=== PATIENT | female | born 1990 | race Caucasian/White ===

== ENCOUNTER 2017-03-04 10:35 | Emergency (ER) | payer SELFPAY ==
[2017-03-04 11:28] VITALS: BP 116/65
--- NOTE | 2017-03-04 11:54 | UC ---
Throat Pain/Nasal Neal HPI - HPI Summary HPI Summary: Patient was exposed to strep, and she now has sore throat,and exudate, - History of Current Complaint Chief Complaint: UCRespiratory Stated Complaint: ST/WHITE SPOTS IN THROAT Time Seen by Provider: 03/04/17 11:48 Hx Obtained From: Patient Hx Last Menstrual Period: 02/24/17 ?: No Onset/Duration: Sudden Onset Severity: Moderate Associated Signs & Symptoms: Positive: Dysphagia - Allergies/Home Medications Allergies/Adverse Reactions: Allergies Allergy/AdvReac Type Severity Reaction Status Date / Time No Known Allergies Allergy Verified 03/04/17 11:19 PMH/Surg Hx/FS Hx/Imm Hx Previously Healthy: Yes - Surgical History Surgical History: None - Family History Known Family History: Negative: Cardiac Disease, Hypertension - Social History Alcohol Use: Occasionally Substance Use Type: None Smoking Status (MU): Never Smoked Tobacco Review of Systems Constitutional: Negative Skin: Negative Eyes: Negative ENT: Sore Throat Respiratory: Negative Cardiovascular: Negative Gastrointestinal: Negative Genitourinary: Negative Neurovascular: Negative Musculoskeletal: Negative Neurological: Headache Psychological: Negative All Other Systems Reviewed And Are Negative: Yes Physical Exam Triage Information Reviewed: Yes Appearance: Well-Appearing, Well-Nourished, Pain Distress Vital Signs: Initial Vital Signs Temp 98.6 F 03/04/17 11:21 Pulse 68 03/04/17 11:21 Resp 14 03/04/17 11:21 BP 116/65 03/04/17 11:21 Pulse Ox 100 03/04/17 11:21 Vital Signs Reviewed: Yes Eye Exam: Normal Eyes: Positive: Conjunctiva Clear ENT: Positive: Hearing grossly normal, Pharyngeal erythema, TMs normal, Tonsillar swelling, Tonsillar exudate Dental Exam: Normal Neck exam: Normal Neck: Positive: Supple, Nontender, No Lymphadenopathy Respiratory Exam: Normal Cardiovascular Exam: Normal Abdominal Exam: Normal Bowel Sounds: Positive: Present Musculoskeletal Exam: Normal Neurological Exam: Normal Psychological Exam: Normal Skin Exam: Normal Throat Pain/Nasal Course/Dx - Course Course Of Treatment: hx obtained, exam performed, meds reviewed, treated for strep based on exposure and clinical presentation - Differential Dx/Diagnosis Differential Diagnosis/HQI/PQRI: Otitis Media, Pharyngitis, Sinusitis, URI Provider Diagnoses: pharyngitis Discharge - Discharge Plan Condition: Stable Disposition: HOME Prescriptions: Amoxicillin (*) [Amoxicillin 875 MG (*)] 875 mg PO BID #20 tab Patient Education Materials: Pharyngitis (ED) Additional Instructions: 1. take the medication as prescribed. 2. Use an alternate form of control while taking antibiotics. 3. increase fluid intake and get plenty of rest.
== END 2017-03-04 12:03 | disposition home or self-care (01) ==
LOC: UCCORT 10:35
DX: J02.9 Acute pharyngitis, unspecified (principal)
CPT/HCPCS: 99212; G0463

== ENCOUNTER 2017-08-14 08:01 | Emergency (ER) | payer MEDICAID ==
[2017-08-14 08:23] VITALS: BP 118/77
[2017-08-14] MEDS ORDERED: Ibuprofen TAB* 600 MG PO ONE (08:56)
--- NOTE | 2017-08-14 09:01 | UC ---
Throat Pain/Nasal Neal HPI - HPI Summary HPI Summary: She has had URI symptoms for about a month but then over the last few days she has had significant sore throat. No fever. This is similar in presentation to prior strep throat. She has had a mild cough. OCT meds not helping. - History of Current Complaint Chief Complaint: UCRespiratory Stated Complaint: SORE THROAT Time Seen by Provider: 08/14/17 08:51 Hx Obtained From: Patient Hx Last Menstrual Period: 08/04/17 ?: No Onset/Duration: Sudden Onset, Lasting Days Severity: Moderate Cough: Nonproductive Associated Signs & Symptoms: Positive: Dysphagia. Negative: Fever, Vomiting, Rash - Allergies/Home Medications Allergies/Adverse Reactions: Allergies Allergy/AdvReac Type Severity Reaction Status Date / Time No Known Allergies Allergy Verified 08/14/17 08:19 PMH/Surg Hx/FS Hx/Imm Hx Previously Healthy: Yes - Surgical History Surgical History: None - Family History Known Family History: Negative: Cardiac Disease, Hypertension - Social History Occupation: Employed Part-time Alcohol Use: Occasionally Substance Use Type: None Smoking Status (MU): Never Smoked Tobacco - Immunization History Most Recent Influenza Vaccination: not this season Review of Systems ENT: Sore Throat Respiratory: Cough All Other Systems Reviewed And Are Negative: Yes Physical Exam Triage Information Reviewed: Yes Appearance: Well-Appearing, No Pain Distress, Well-Nourished Vital Signs: Initial Vital Signs Temp 98.1 F 08/14/17 08:19 Pulse 76 08/14/17 08:19 Resp 18 08/14/17 08:19 BP 118/77 08/14/17 08:19 Pulse Ox 100 08/14/17 08:19 Vital Signs Reviewed: Yes Eyes: Positive: Conjunctiva Clear ENT: Positive: Pharyngeal erythema, TMs normal, Uvula midline. Negative: Nasal drainage, Tonsillar swelling, Tonsillar exudate, Trismus, Muffled voice, Hoarse voice, Sinus tenderness Neck exam: Normal Neck: Positive: Supple, No Lymphadenopathy, Tenderness @ - left submandibular.. Negative: Nuchal Rigidity, Enlarged Nodes @ Respiratory: Positive: Chest non-tender, Lungs clear, Normal breath sounds, No respiratory distress, No accessory muscle use. Negative: Respiratory distress, Decreased breath sounds, Accessory muscle use, Crackles, Rhonchi, Stridor, Wheezing Cardiovascular: Positive: RRR, No Murmur, Pulses Normal, Brisk Capillary Refill Abdomen Description: Positive: Nontender, No Organomegaly, Soft. Negative: Distended, Guarding Musculoskeletal: Positive: Strength Intact, ROM Intact, No Edema Neurological: Positive: Alert, Muscle Tone Normal. Negative: Fatigued Skin: Negative: rashes Throat Pain/Nasal Course/Dx - Course Course Of Treatment: URI symptoms. She will continue supportive care whcih was described in detail for the next few days and start z pack if not improved by then. - Differential Dx/Diagnosis Provider Diagnoses: viral uri. Discharge - Discharge Plan Condition: Good Disposition: HOME Prescriptions: Azithromyxin ANGELICA (NF) [Z-Angelica (Zithromax) 250 mg tabs #6] 2 tab PO .TODAY, THEN 1 DAILY #6 tab Patient Education Materials: Upper Respiratory Infection (ED) Referrals: Kulwant Stanley MD [Primary Care Provider] - If Needed
== END 2017-08-14 09:30 | disposition home or self-care (01) ==
LOC: UCCORT 08:01
DX: J06.9 Acute upper respiratory infection, unspecified (principal)
CPT/HCPCS: 87651; 99212; A9270-GY; G0463

== ENCOUNTER 2017-10-09 11:08 | Emergency (ER) | payer OTHER ==
[2017-10-09 11:23] VITALS: BP 153/87
--- NOTE | 2017-10-09 11:57 | UC ---
Skin Complaint HPI - HPI Summary HPI Summary: She has had skin rash and blotchiness with anxiety. She has had some burning of the skin over the last 24 hours. She has had general anxiety and panic attacks over the last year or so. She says her stressors are financial. She denies drugs or etoh. She has supportive family. Driving, she had racing heart and near syncope and her mother did have heart disease. No CP or cardiac ischemic equivalents. She has a new pcp appt in one month. No mental health help. She has been eating and drinking well but nothing today thus far. - History of Current Complaint Chief Complaint: UCPsych Time Seen by Provider: 10/09/17 11:39 Stated Complaint: ANXIETY SKIN COMPLAINT Hx Last Menstrual Period: "probably about a month ago" Onset/Duration: Lasting Weeks Timing: Constant Onset Severity: Moderate Current Severity: Moderate Location: Diffuse Character: Hives Aggravating Factor(s): Nothing Alleviating Factor(s): Nothing Associated Signs & Symptoms: Positive: Weakness, Rash, Syncope. Negative: Nausea, Vomiting, Fever, Chills, Cough, Wheezing, Chest Pain, Throat Tightening , Tenderness, Red Streaks, Joint Swelling - Allergy/Home Medications Allergies/Adverse Reactions: Allergies Allergy/AdvReac Type Severity Reaction Status Date / Time No Known Allergies Allergy Verified 10/09/17 11:18 Home Medications: Home Medications Desogestrel-Ethinyl Estradiol [Pimtrea] 1 tab PO 1900 10/09/17 [History Confirmed 10/09/17] diPHENhydraMINE PO* [Benadryl PO 25 MG TAB*] 25 mg PO Q6H PRN 10/09/17 [History Confirmed 10/09/17] Review of Systems Skin: Rash Cardiovascular: Palpitations Psychological: Anxious, Depressed All Other Systems Reviewed And Are Negative: Yes PMH/Surg Hx/FS Hx/Imm Hx Previously Healthy: No - Anxiety- untreated. - Surgical History Surgical History: None - Family History Known Family History: Positive: Cardiac Disease Negative: Hypertension - Social History Alcohol Use: Weekly Substance Use Type: None Smoking Status (MU): Never Smoked Tobacco - Immunization History Most Recent Influenza Vaccination: Not the Season Physical Exam Triage Information Reviewed: Yes Appearance: Well-Appearing, No Pain Distress, Well-Nourished Vital Signs: Initial Vital Signs Temp 98.5 F 10/09/17 11:15 Pulse 73 10/09/17 11:15 Resp 16 10/09/17 11:15 BP 153/87 10/09/17 11:15 Pulse Ox 100 10/09/17 11:15 Vital Signs Reviewed: Yes Eyes: Positive: Conjunctiva Clear. Negative: Conjunctiva Inflamed ENT: Positive: Normal ENT inspection, Pharynx normal Neck: Positive: Supple, Nontender, No Lymphadenopathy. Negative: Nuchal Rigidity Respiratory: Positive: Lungs clear, Normal breath sounds, No respiratory distress, No accessory muscle use. Negative: Respiratory distress, Decreased breath sounds, Accessory muscle use, Crackles, Rhonchi, Stridor, Wheezing Cardiovascular: Positive: No Murmur, Pulses Normal, Brisk Capillary Refill Abdomen Description: Positive: No Organomegaly, Soft. Negative: Distended, Guarding Musculoskeletal: Positive: Strength Intact, ROM Intact, No Edema Neurological: Positive: Muscle Tone Normal Psychological: Positive: Age Appropriate Behavior, Other: - Logical coherent. Appropriately dressed and good hygeine. Good eye contact. No psychomotor slowing or agitation. Mildly flattened affect. Skin Exam: Other - some lacy blotchiness of the medial forearms. Diagnostics - EKG Cardiac Rate: NL ST Segment: Normal Course/Dx - Course Course Of Treatment: No cardiac risk factors except for mother's history. She has had racing heart mainly at rest. Near syncope today. She has an appt for pcp within the month. She is low risk for suicide. She has supportive family and her mental status exam is benign. she does agree to start therapy and get mental health help with [facility]. She agrees to call 911 for any worsening depression or suicidal thoughts. EKG today and u preg. Rash is likely anxiety related as well. Hydroxizine prn. - Diagnoses Provider Diagnoses: anxiety. Rashes. near syncope. Discharge - Discharge Plan Condition: Good Disposition: HOME Prescriptions: hydrOXYzine HCL TAB* [Atarax 25 MG TAB*] 25 mg PO TID PRN #30 tab PRN Reason: Anxiety Patient Education Materials: Anxiety (ED), Near Syncope (ED) Referrals: No Primary Care Phys,NOPCP [Primary Care Provider] - Additional Instructions: Follow up with your primary care doctor that is already scheduled. Follow up with [facility]
== END 2017-10-09 12:30 | disposition home or self-care (01) ==
LOC: UCCORT 11:08
DX: R21 Rash and other nonspecific skin eruption (principal); F41.9 Anxiety disorder, unspecified; R55 Syncope and collapse; R00.2 Palpitations; F32.9 Major depressive disorder, single episode, unspecified; Z32.02 Encounter for pregnancy test, result negative
CPT/HCPCS: 84702; 93005; 99212; G0463

== ENCOUNTER 2017-11-18 07:10 | Emergency (ER) | payer OTHER ==
[2017-11-18 07:37] VITALS: BP 122/76
--- NOTE | 2017-11-18 07:56 | ED ---
Throat Pain/Nasal Congestion - HPI Summary HPI Summary: 27 yr old female with the complaint of sore throat, onset yesterday, symptoms moderate. No fever, chills, no trouble swallowing, no drooling. No other complaints. - History of Current Complaint Chief Complaint: UCRespiratory Time Seen by Provider: 11/18/17 07:23 - Allergies/Home Medications Allergies/Adverse Reactions: Allergies Allergy/AdvReac Type Severity Reaction Status Date / Time No Known Allergies Allergy Verified 10/09/17 11:18 Home Medications: Home Medications ALPRAZolam TAB* [Xanax TAB*] 0.125 mg PO Q8H PRN 11/18/17 [History Confirmed ] PMH/Surg Hx/FS Hx/Imm Hx Endocrine/Hematology History: Denies: Hx Diabetes Respiratory History: Reports: Hx Asthma - r/t exercise - Surgical History Surgery Procedure, Year, and Place: bx left breast Infectious Disease History: No Infectious Disease History: Reports: Hx Shingles - ~2004 Denies: Traveled Outside the [place] in Last 30 Days - Family History Known Family History: Positive: Cardiac Disease Negative: Hypertension - Social History Alcohol Use: Weekly Alcohol Amount: 5 Substance Use Type: Reports: None Smoking Status (MU): Never Smoked Tobacco Review of Systems Constitutional: Negative Eyes: Negative Positive: Sore Throat All Other Systems Reviewed And Are Negative: Yes Physical Exam Triage Information Reviewed: Yes Vital Signs On Initial Exam: Initial Vitals Temp Pulse Resp BP Pulse Ox 98.8 F 83 18 122/76 100 11/18/17 07:24 11/18/17 07:24 11/18/17 07:24 11/18/17 07:24 11/18/17 07:24 Vital Signs Reviewed: Yes Appearance: Positive: Well-Appearing, No Pain Distress Skin: Positive: Warm Head/Face: Positive: Normal Head/Face Inspection Eyes: Positive: EOMI ENT: Positive: Normal ENT inspection, Pharyngeal erythema, TMs normal Neck: Positive: Nontender Respiratory/Lung Sounds: Positive: Clear to Auscultation, Breath Sounds Present Cardiovascular: Positive: RRR. Negative: Murmur Abdomen Description: Positive: Nontender Musculoskeletal: Positive: Strength/ROM Intact Neurological: Positive: Sensory/Motor Intact, Alert, Oriented to Person Place, Time, CN Intact II-III Psychiatric: Positive: Normal AVPU Assessment: Alert - [place] Coma Scale Best Eye Response: 4 - Spontaneous Best Motor Response: 6 - Obeys Commands Best Verbal Response: 5 - Oriented Coma Scale Total: 15 Diagnostics - Vital Signs Vital Signs Temp Pulse Resp BP Pulse Ox 11/18/17 07:24 98.8 F 83 18 122/76 100 - Laboratory Lab Results: Lab Results 11/18/17 Range/Units 07:32 Group A Strep Rapid Positive H (Negative) Lab Statement: Any lab studies that have been ordered have been reviewed, and results considered in the medical decision making process. EENT Course/Dx - Course Course Of Treatment: 27 yr old female with step pharyngitis. Plan Rx with Amoxicillin. - Diagnoses Provider Diagnoses: Strep pharyngitis Discharge - Discharge Plan Condition: Good Disposition: HOME Prescriptions: Amoxicillin PO (*) [Amoxicillin 500 MG CAP*] 500 mg PO TID #30 cap Patient Education Materials: Pharyngitis (ED) Forms: *School Release Referrals: [facility] [Outside] No Primary Care Phys,NOPCP [Primary Care Provider] -
== END 2017-11-18 08:09 | disposition home or self-care (01) ==
LOC: UCCORT 07:10
DX: J02.0 Streptococcal pharyngitis (principal)
CPT/HCPCS: 87651; 99212; G0463

== ENCOUNTER 2018-05-11 12:18 | Emergency (ER) | payer OTHER ==
[2018-05-11 13:48] VITALS: BP 131/87
--- NOTE | 2018-05-11 14:27 | UC ---
Throat Pain/Nasal Neal HPI - HPI Summary HPI Summary: 28 year old female presents with 1 week history of sore throat and productive cough for yellow sputum. Associated with bilateral ear pain/fullness, nasal congestion, pleuritic chest pain with deep breath, and chest tightness. Has history of exercise-induced asthma however has not used inhaler in years. Denies fever, chills, dysphagia, shortness of breath, abdominal pain, nausea, or vomiting. - History of Current Complaint Chief Complaint: UCRespiratory Stated Complaint: SORE THROAT, CHEST CONGESTION Time Seen by Provider: 05/11/18 14:12 Hx Obtained From: Patient Hx Last Menstrual Period: 05/04/18 Onset/Duration: Gradual Onset Severity: Moderate Pain Intensity: 7 Cough: Productive - yellow sputum Associated Signs & Symptoms: Positive: Nasal Discharge. Negative: Dysphagia, Wheezing, Sinus Discomfort, Fever, Vomiting, Rash - Allergies/Home Medications Allergies/Adverse Reactions: Allergies Allergy/AdvReac Type Severity Reaction Status Date / Time No Known Allergies Allergy Verified 05/11/18 13:41 Home Medications: Home Medications Acetaminophen TAB* [Tylenol TAB*] 325 mg PO Q4H PRN 05/11/18 [History Confirmed 05/11/18] Ibuprofen TAB* [Advil TAB*] 800 mg PO Q6H PRN 05/11/18 [History Confirmed ] PMH/Surg Hx/FS Hx/Imm Hx Previously Healthy: Yes Respiratory History: Asthma - exercise-induced - Surgical History Surgical History: Yes Surgery Procedure, Year, and Place: bx left breast - Family History Known Family History: Positive: Cardiac Disease Negative: Hypertension - Social History Occupation: Employed Full-time Lives: With Family Alcohol Use: Occasionally Alcohol Amount: 5 Substance Use Type: None Smoking Status (MU): Never Smoked Tobacco - Immunization History Most Recent Influenza Vaccination: Not the 2017/2017 Season Review of Systems Constitutional: Negative Skin: Negative Eyes: Negative ENT: Sore Throat, Nasal Discharge Respiratory: Cough, Other - pleuritic pain with deep breath Cardiovascular: Negative Gastrointestinal: Negative Is Patient Immunocompromised?: No All Other Systems Reviewed And Are Negative: Yes Physical Exam Triage Information Reviewed: Yes Appearance: Well-Appearing, No Pain Distress, Well-Nourished Vital Signs: Initial Vital Signs Temp 99.1 F 05/11/18 13:43 Pulse 73 08/12/18 13:43 Resp 16 05/11/18 13:43 BP 131/87 05/11/18 13:43 Pulse Ox 100 05/11/18 13:43 Vital Signs Reviewed: Yes Eyes: Positive: Conjunctiva Clear ENT: Positive: Pharyngeal erythema - mild with cobblestoning, Nasal congestion, TMs normal, Uvula midline. Negative: Tonsillar swelling, Tonsillar exudate, Sinus tenderness Neck: Positive: Supple, Nontender, No Lymphadenopathy Respiratory: Positive: Chest non-tender, Lungs clear, Normal breath sounds, No respiratory distress Cardiovascular: Positive: RRR, No Murmur Skin Exam: Normal Throat Pain/Nasal Course/Dx - Course Course Of Treatment: 28 year old female with 1 week history of sore throat, chest congestion, and productive cough for yellow sputum. Associated with nasal congestion, bilateral ear pain, pleuritic pain with deep breath, and chest tightness. Has history of exercised-induced asthma. With 1 week history of URI symptoms and history of asthma will go ahead and treat with course of azithromycin as well as symptomatic treatment. Follow up with PCP if no improvement. Assessment/Plan: Acute URI - Differential Dx/Diagnosis Provider Diagnoses: Acute URI Discharge - Sign-Out/Discharge Documenting (check all that apply): Patient Departure - Discharge Plan Condition: Stable Disposition: HOME Prescriptions: Azithromycin 250 mg PO DAILY #6 tablet Patient Education Materials: Upper Respiratory Infection (ED) Referrals: Mayra Villavicencio MD [Primary Care Provider] - If Needed Additional Instructions: Start azithromycin 250 mg. Take 2 tabs by mouth today then 1 tab daily for next 4 days. Restart your over the counter allergy pill and steroid nasal spray. Take as directed. Use an over the counter pain medication such as acetaminophen (Tylenol) or ibuprofen (Advil, Motrin) according to directions as needed for pain. May use Cloraseptic spray or Cepacol lozenges for temporary relief of sore throat. Get plenty of rest. Drink plenty of fluids. Follow up with your primary care provider as needed. - Billing Disposition and Condition Condition: STABLE Disposition: Home
== END 2018-05-11 14:41 | disposition home or self-care (01) ==
LOC: UCCORT 12:18
DX: J06.9 Acute upper respiratory infection, unspecified (principal)
CPT/HCPCS: 99212; G0463

== ENCOUNTER 2018-07-30 16:55 | Emergency (ER) | payer OTHER ==
--- OUTSIDE RECORDS SUMMARY | 2018-07-30 17:07 | XMS REPORT ---
:1990 External Reference #:[id number] Author Organization [facility] 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 , Active FACC Onset: 11/25/2017 Anxiety state Mayra Villavicencio MD Active Onset: 11/25/2017 Low back pain Mayra Villavicencio MD Active Onset: 11/25/2017 Dysuria Mayra Villavicencio MD Active Onset: 11/25/2017 Sexually transmitted infectious Mayra Villavicencio MD Active disease Onset: 01/07/2018 Allergic rhinitis Mayra Villavicencio MD Active Onset: 01/07/2018 Health examination of sub-group Mayra Villavicencio MD Active Onset: 01/07/2018 Mayra Peace MD Active Family History Date Family Member(s) Problem(s) Comments Father Hypercholesterolemia Father 56 Father Hypertension Father High Cholesterol Mother Hypertropic Cardiomyopathy Mother 55 Mother Thyroid Disease Siblings 2 29; 35 Social History Type Date Description Comments Lives With Mother And Father Diet Patient follows no dietary restrictions Occupation Currently Working Cigarette Use Never Smoked Cigarettes ETOH Use Occasionally consumes alcohol Smoking Patient has never smoked Daily Caffeine Consumes on average 1 cup of regular coffee per day Allergies, Adverse Reactions, Alerts Date Description Reaction Status Severity Comments 03/06/2013 NKDA active Medications Medication Date Status Form Strength Qnty SIG Indications Ordering Provider Pimtrea 07/14/ Active Tablets 0.15-0.02/ 28tab Take one Z30.09 Gagen, 2017 0.01 mg s every day Lida (17/02) at the e, [place], same time [facility]-, CN Proair HFA 07/14/ Active Aerosol 108(90Base 8.500 take 1 or J45.990 Gagen2017 ) mcg/Act gm 2 puffs Lida 20 min e, [place], before [facility]-, exercise CN Lo Loestrin Fe 05/28/ Active Tablets 1mg-10 mcg 28tab Take one Z30.09 Gagen, 2017 / 10 mcg s tablet Lida every day e, [place], at the [facility], same time CN Sertraline HCL 11/25/ Active Tablets 25mg 30tab take one Saud, 2017 s tablet by MD Mayra mouth every day Ciprodex 01/07/ Hx Suspension 0.3-0.1% 1bott 4 drops Saud 2017 - le in MD Mayra 05/28/ affected 2018 left ear twice a day x 10 days Nitrofurantoin 11/25/ Hx Capsules 100mg 10cap 1 tab by Saud Monohyd Macro 2017 - s mouth MD Mayra 01/07/ twice a 2018 day x 5 days Lexapro 11/04/ Hx Tablets 10mg 30tab 1 by R00.0 Blanco 2018 - s mouth Annmarie 11/25/ every day Taylor 2018 , MSN, [facility] F41.9 Lo Loestrin Fe Hx Tablets 1mg-10 mcg / 1 po qd as Unknown 10 mcg directed Xanax - Hx Tablets 0.25mg 1 tab by mouth Unknown 11/25/2017 three times daily as needed for severe anxiety Pimtrea - Hx Tablets 0.15-0.02/0.01 Unknown 05/28/2018 mg (17/02) Vital Signs Date Vital Result Comment 07/14/2018 BP Systolic Sitting Right Arm 120 mmHg BP Diastolic Sitting Right Arm 80 mmHg Heart Rate 65 /min reg Respiratory Rate 18 /min Height 64.5 inches 5'4.50" Weight 126.00 lb BMI (Body Mass Index) 21.3 kg/m2 BSA (Body Surface Area) 1.62 m2 Melissa body weight in kilograms 56 O2 % BldC Oximetry 100 % ra 05/28/2018 BP Systolic Sitting Left Arm 104 mmHg BP Diastolic Sitting Left Arm 64 mmHg Body Temperature 98.6 F Heart Rate 66 /min Respiratory Rate 16 /min Height 64.5 inches 5'4.50" Weight 122.00 lb BMI (Body Mass Index) 20.6 kg/m2 BSA (Body Surface Area) 1.59 m2 Melissa body weight in kilograms 56 Last Menstrual Period [id number] O2 % BldC Oximetry 99 % Ra 01/07/2018 BP Systolic 124 mmHg BP Diastolic 75 mmHg Body Temperature 98.7 F Heart Rate 90 /min Respiratory Rate 14 /min Height 64.5 inches 5'4.50" Weight 122.50 lb BMI (Body Mass Index) 20.7 kg/m2 BSA (Body Surface Area) 1.60 m2 Melissa body weight in kilograms 56 O2 % BldC Oximetry 100 % 11/25/2017 BP Systolic Sitting Right Arm 117 mmHg BP Diastolic Sitting Right Arm 79 mmHg Heart Rate 65 /min Height 64.5 inches 5'4.50" Weight 120.00 lb BMI (Body Mass Index) 20.3 kg/m2 BSA (Body Surface Area) 1.58 m2 Melissa body weight in kilograms 56 O2 % BldC Oximetry 99 % ra 11/04/2017 BP Systolic Sitting Left Arm 92 mmHg BP Diastolic Sitting Left Arm 64 mmHg Heart Rate 63 /min Respiratory Rate 16 /min Height 63.25 inches 5'3.25" Weight 121.00 lb BMI (Body Mass Index) 21.3 kg/m2 BSA (Body Surface Area) 1.57 m2 Melissa body weight in kilograms 53 03/11/2013 BP Systolic Sitting Right Arm 108 mmHg BP Diastolic Sitting Right Arm 64 mmHg Heart Rate 57 /min Respiratory Rate 14 /min Height 63.25 inches 5'3.25" Weight 121.00 lb BMI (Body Mass Index) 21.3 kg/m2 BSA (Body Surface Area) 1.57 m2 Results Test Date Test Result H/L Range Note Genital Culture W/ Gram 05/28/2018 Gram Stain GRAM STAIN INDIC <SEE 1, 2 Stain NOTE> Gram Stain FEW GR POS. BACI <SEE NOTE> 1, 3 Gram Stain NO WHITE BLOOD C <SEE NOTE> 1, 4 Genital Culture GENITAL VA 1 Chlmaydia/GC/Trichomonas PCR 05/28/2018 Trichomonas vaginalis Negative Negative 1 PCR Chlamydia trachomatis, PCR Negative Negative 1 Neisseria gonorrhoeae, PCR Negative Negative 1, 5 Specimen Type: Genital 1 HPV High Risk - Alt Ref 05/28/2018 HPV High Risk Results on file 1, 6 Lab Culture If Indicated 11/25/2017 Culture If Indicated CULTURE TO FOLLO 7 , 8 Comment Comment <SEE NOTE> Source: URINE, CLEAN CAT <SEE NOTE> 7, 9 Ast-GN67 11/25/2017 Nitrofurantoin <=16 7 Trimethoprim/Sulfamethoxazole >=320 7 Ampicillin >=32 7 Cefazolin <=4 7 Ampicillin/Sulbactam 16 7 Ciprofloxacin <=0.25 7 Piperacillin/Tazobactam <=4 7 Ceftazidime <=1 7 Ceftriaxone <=1 7 Cefepime <=1 7 Levofloxacin <=0.12 7 Imipenem <=0.25 7 Gentamicin >=16 7 Tobramycin 8 7 Chlamydia/GC Annemarie, Urine 11/25/2017 Chlamydia Trachomatis,Ur Negative Negative 7 -PCR Neisseria Gonorrhoeae,Ur -PCR Negative Negative 7, 10 Urine Culture 11/25/2017 Urine Culture ESCHERICHIA COLI 7, 11 Quantity > 100,000 CFU/mL 7, 12 Ua RFX Micro & Culture II 11/25/2017 Urine Color YELLOW Yellow 7 Urine Clarity CLEAR Clear 7 Urine Glucose - Dipstick NEGATIVE mg/dL Negative 7 Urine Bilirubin - Dipstick NEGATIVE Negative 7 Urine Ketone NEGATIVE mg/dL Negative 7 Urine Specific [place] 1.025 1.010-1.030 7 Urine Blood TRACE Negative 7 Urine PH 6.0 Low 6.5-7.5 7 Urine Protein - Dipstick NEGATIVE mg/dL Negative 7 Urine Urobilinogen - Dipstick 0.2 E.U./dL 0.2-1.0 7 Urine Nitrite - Dipstick POSITIVE Negative 7 Urine Leuk Esterase TRACE Negative 7 Urine RBC 0-2 rbc/hpf 0-2 7 Urine WBC 10-20 wbc/hpf High 0-7 7 Urine Epithelial Cells FEW /lpf None Seen 7 Urine Bacteria MODERATE None Seen 7 Urine Amorph Sediment MODERATE Negative 7 Source: URINE, CLEAN CAT <SEE NOTE> 7, 13 Serum or plasma 10/28/2017 Serum or plasma 81 74-106 glucose measurement glucose measurement (mass/volume) (mass/volume) Serum or plasma 10/28/2017 Serum or plasma 0.8 0.6-1.3 creatinine measurement creatinine (mass/volum measurement (mass/volume) Serum or plasma 10/28/2017 Serum or plasma 8.8 8.5-10.1 calcium measurement calcium measurement (mass/volume) (mass/volume) Serum or plasma 10/28/2017 Serum or plasma 12 Low 15-37 aspartate aspartate aminotransferase aminotransferase measure measurement (enzymatic activity/volume) Serum or plasma 10/28/2017 Serum or plasma 61 45-117 alkaline phosphatase alkaline phosphatase measurement ( measurement (enzymatic activity/volume) Serum or plasma 10/28/2017 Serum or plasma 4.1 3.4-5.0 albumin measurement albumin measurement (mass/volume) (mass/volume) Serum carbon dioxide 10/28/2017 Serum carbon dioxide 28 21-32 measurement measurement RDW RBC Auto-Rto 10/28/2017 RDW RBC Auto-Rto 12.8 11.7-14.4 RDW RBC Auto 10/28/2017 RDW RBC Auto 41.1 3-47 Prot Ur 10/28/2017 Prot Ur Negative Negative Strip.auto-mCnc Strip.auto-mCnc Potassium SerPl-sCnc 10/28/2017 Potassium SerPl-sCnc 3.5 3.5-5.1 Serum or plasma 10/28/2017 Serum or plasma 7.8 6.4-8.2 protein measurement protein measurement (mass/volume) (mass/volume) Serum or plasma total 10/28/2017 Serum or plasma total 0.3 0.2-1.0 bilirubin measurement bilirubin measurement (mass/ (mass/volume) Serum or plasma urea 10/28/2017 Serum or plasma urea 19 High 7-18 nitrogen measurement nitrogen measurement (mass/vo (mass/volume) Serum sodium 10/28/2017 Serum sodium 141 136-145 measurement measurement Specific gravity of 10/28/2017 Specific gravity of 1.020 1.010-1.030 Urine by Automated Urine by Automated test strip test strip Urine appearance 10/28/2017 Urine appearance SL Cloudy Clear determination determination Urine glucose 10/28/2017 Urine glucose Negative Negative measurement by measurement by automated test strip automated test strip (mass/volume) Urine hemoglobin 10/28/2017 Urine hemoglobin Negative Negative detection by automated detection by test strip automated test strip Urine total bilirubin 10/28/2017 Urine total bilirubin Negative Negative detection by automated detection by test automated test strip Urobilinogen Ur 10/28/2017 Urobilinogen Ur 0.2 0.2-1.0 Strip-aCnc Strip-aCnc WBC # Bld Auto 10/28/2017 WBC # Bld Auto 9.7 3.1-10.7 pH Ur Strip.auto 10/28/2017 pH Ur Strip.auto 6.5 6.5-7.5 CBS W/Automated Diff 10/28/2017 White Blood Count 9.7 K/uL 3.1-10.7 14 Red Blood Count 4.51 M/uL 3.90-5.40 14 Hemoglobin 14.0 gm/dL 11.6-15.8 14 Hematocrit 40.5 % 36.0-46.1 14 Mean Cell Volume 89.8 fl 80.9-99.0 14 Mean Corpuscular HGB 31.0 pg 25.9-32.7 14 Mean Corpuscular HGB Conc 34.6 g/dL High 30.8-34.3 14 Platelet Count 228 K/uL 155-360 14 Red Cell Distri Width SD 41.1 fl 3-47 14 Red Cell Distri Width %CV 12.8 % 11.7-14.4 14 Mean Platelet Volume 11.2 fL 8.9-12.4 14 Neut% 51.8 % 40.4-72.8 14 Lymph % 40.7 % 20.0-42.0 14 Kemper % 5.8 % 4.3-13.2 14 Eo% 1.3 % 0.0-6.6 14 Bas% 0.4 % 0.0-1.1 14 Neut# 5.03 K/uL 1.8-7.0 14 Lymph # 3.96 K/uL 1.0-4.0 14 Kemper # 0.56 K/uL 0.3-0.9 14 Eos # 0.13 K/uL 0.0-0.5 14 Baso # 0.04 K/uL 0.0-0.1 14 Ua RFX Micro & Culture II 10/28/2017 Urine Color YELLOW Yellow 14 Urine Clarity SL CLOUDY Clear 14 Urine Glucose - Dipstick NEGATIVE mg/dL Negative 14 Urine Bilirubin - Dipstick NEGATIVE Negative 14 Urine Ketone TRACE mg/dL High Negative 14 Urine Specific [place] 1.020 1.010-1.030 14 Urine Blood NEGATIVE Negative 14 Urine PH 6.5 6.5-7.5 14 Urine Protein - Dipstick NEGATIVE mg/dL Negative 14 Urine Urobilinogen - Dipstick 0.2 E.U./dL 0.2-1.0 14 Urine Nitrite - Dipstick NEGATIVE Negative 14 Urine Leuk Esterase NEGATIVE Negative 14 Source: URINE, CLEAN CAT <SEE NOTE> 14, 15 Comprehensive Metabolic Panel 10/28/2017 Glucose 81 mg/dL 74-106 14 BUN 19 mg/dL High 7-18 14 Creatinine 0.8 mg/dL 0.6-1.3 14 Glom Filtration Rate, Estimate >60 mL/min >60 14 If >60 mL/min >60 14, 16 BUN/Creat 23.7 ratio 14 Sodium 141 mmol/L 136-145 14 Potassium 3.5 mmol/L 3.5-5.1 14 Chloride 107 mmol/L 98-107 14 Carbon Dioxide 28 mmol/L 21-32 14 Anion Gap 6 mEq/L Low 8-16 14 Calcium 8.8 mg/dL 8.5-10.1 14 Total Protein 7.8 g/dL 6.4-8.2 14 Albumin 4.1 g/dL 3.4-5.0 14 Globulin 3.7 g/dL 1.9-4.3 14 Alb/Glob 1.1 ratio 14 Bilirubin,Total 0.3 mg/dL 0.2-1.0 14 Sgot/Ast 12 U/L Low 15-37 14, 17 SGPT/Alt 25 U/L 12-78 14 Alkaline Phosphatase 61 U/L 45-117 14 Laboratory test finding 10/28/2017 CK 66 U/L 26-192 14 Troponin-I < 0.015 ng/mL 14, 18 D-Dimer, Quantitative < 0.27 ug/mL 14, 19 Magnesium 2.3 mg/dL 1.8-2.4 14 Thyroid Stim Hormone 1.02 uIU/mL 0.30-4.20 14 Free T4 1.12 ng/dL 0.76-1.46 14 Alt SerPl-cCnc 10/28/2017 Alt SerPl-cCnc 25 12-78 Albumin/Glob SerPl 10/28/2017 Albumin/Glob SerPl 1.1 Anion Gap SerPl-sCnc 10/28/2017 Anion Gap SerPl-sCnc 6 Low 8-16 Automated blood 10/28/2017 Automated blood basophil 0.04 0.0-0.1 basophil count count (count/volume) (count/volume) Automated blood 10/28/2017 Automated blood 0.13 0.0-0.5 eosinophil count eosinophil count Automated blood 10/28/2017 Automated blood 40.5 36.0-46.1 hematocrit (volume hematocrit (volume fraction) fraction) Automated blood 10/28/2017 Automated blood 3.96 1.0-4.0 lymphocyte count lymphocyte count (number/volume) (number/volume) Automated blood 10/28/2017 Automated blood platelet 228 155-360 platelet count count Automated blood 10/28/2017 Automated blood platelet 11.2 8.9-12.4 platelet mean volume mean volume measurement measurement Automated erythrocyte 10/28/2017 Automated erythrocyte 31.0 25.9-32.7 mean corpuscular mean corpuscular hemoglobin hemoglobin (mass per erythrocyte) Automated erythrocyte 10/28/2017 Automated erythrocyte 34.6 High 30.8- 34.3 mean corpuscular mean corpuscular hemoglobin hemoglobin concentration measurement (mass/volume) Automated erythrocyte 10/28/2017 Automated erythrocyte 89.8 80.9-99.0 mean corpuscular volume mean corpuscular volume Nitrite Ur Ql 10/28/2017 Nitrite Ur Ql Strip.auto Negative Negative Strip.auto Neutrophils/leuk NFr 10/28/2017 Neutrophils/leuk NFr Bld 51.8 40.4-72.8 Bld Auto Auto Neutrophils # Bld Auto 10/28/2017 Neutrophils # Bld Auto 5.03 1.8-7.0 Monocytes/leuk NFr Bld 10/28/2017 Monocytes/leuk NFr Bld 5.8 4.3-13.2 Auto Auto Lymphocytes/leuk NFr 10/28/2017 Lymphocytes/leuk NFr Bld 40.7 20.0-42.0 Bld Auto Auto Leukocyte esterase Ur 10/28/2017 Leukocyte esterase Ur Ql Negative Negative Ql Strip.auto Strip.auto Ketones Ur 10/28/2017 Ketones Ur Trace High Negative Strip.auto-mCnc Strip.auto-mCnc Globulin Ser Calc-mCnc 10/28/2017 Globulin Ser Calc-mCnc 3.7 1.9-4.3 Eosinophil/leuk NFr Bld 10/28/2017 Eosinophil/leuk NFr Bld 1.3 0.0-6.6 Auto Auto Color Ur 10/28/2017 Color Ur Yellow Yellow Chloride SerPl-sCnc 10/28/2017 Chloride SerPl-sCnc 107 98-107 Blood monocytes 10/28/2017 Blood monocytes 0.56 0.3-0.9 automated count automated count (number/volume) (number/volume) Blood hemoglobin 10/28/2017 Blood hemoglobin 14.0 11.6-15.8 measurement measurement (mass/volume) (mass/volume) Blood erythrocytes 10/28/2017 Blood erythrocytes 4.51 3.90-5.40 automated count automated count (number/volume) (number/volume) Basophils/leuk NFr Bld 10/28/2017 Basophils/leuk NFr Bld 0.4 0.0-1.1 Auto Auto BUN/Creat SerPl 10/28/2017 BUN/Creat SerPl 23.7 1 A64 Z12.4 2 GRAM STAIN INDICATES NORMAL GENITAL VA 3 FEW GR POS. BACILLI SUGGESTIVE OF LACTOBACILLUS SP. 4 NO WHITE BLOOD CELLS 5 A negative result for either C. trachomatis and/or N. gonorrhoeae does not preclued an infection because results are dependent on adequate specimen collection, absence of inhibitors, and sufficient DNA to be detected. 6 Hard copy of report to be sent by mail Report may be viewed in Clinical Review, or in PCI under Medical Record Forms 7 R30.0 8 CULTURE TO FOLLOW 9 URINE, CLEAN CATCH 10 A negative result for either C. trachomatis and/or N. gonorrhoeae does not preclued an infection because results are dependent on adequate specimen collection, absence of inhibitors, and sufficient DNA to be detected. 11 ESCHERICHIA COLI 12 > 100,000 CFU/mL 13 URINE, CLEAN CATCH 14 BAD ARM PAIN BOTH ARMS UPPER BACK 15 URINE, CLEAN CATCH 16 Note: Persistent reduction for 3 months or more in an eGFR <60 mL/min/1.73 m2 defines CKD. Patients with eGFR values >/=60 mL/min/1.73 m2 may also have CKD if evidence of persistent proteinuria is present. The original MDRD equation for estimated GFR is not valid for patients less than 18 years of age. Additional information may be found at www.kdoqi.org. 17 Values below the stated reference ranges of AST and ALT can be seen in normal populations. Clinical correlation is suggested. 18 0.0 - 0.045 ng/mL: Normal 0.046 - 0.5 ng/mL: Suggestive 0.6 - 1.5 ng/mL: Consistent 19 <=0.49 ug/mL - Low likelihood of DIC, DVT or Pulmonary Embolism >0.49 ug/mL - Additional testing should be done to rule out DIC, DVT, or Pulmonary embolism as clinically indicated. ([facility] has established a 97.89% negative predictive value for thrombotic disease when a cutoff value of 0.5 ug/mL is used.) Procedures Date CPT Code Description Status 11/25/2017 68056 Radiology, T-Spine 2 Views Completed 11/19/2017 29162 Echocardiogram Complete Completed 11/04/2017 87863 EKG-Tracing And Report Completed 03/11/2013 33972 EKG-Tracing And Report Completed 03/03/2013 15695 Echocardiogram Complete Completed 02/02/2008 02235 EKG Interpretation And Report Only Completed Encounters Type Date Location Provider CPT E/M Dx Office Visit 05/28/2018 8:30a Primary Care Office Izabela Parr, [address]78 Z30.09 [place], [place], JAVON Z12.4 Z01.419 A64 Office Visit 01/07/2018 10:00a [place] [address] Z02.1 F41.9 M54.5 J30.9 H92.02 Office Visit 11/25/2017 2:40p [place] [address] F41.9 R30.0 A64 M54.5 Office Visit 11/04/2017 3:00p Cardiology Office Annmarie Simeon, [address]46 R00.0 [place]A F41.9 Office Visit 03/11/2013 9:50a Cardiology Office Andres Ibarra, [address] 427.Mary Anne Olivas, [facility] Plan of Care Future Appointment(s):10/14/2018 10:00 am - Izabela Parr, MS, GRADER TENDER-C, CNM at Primary Care [id number]/14/2018 - Izabela Parr, MS, GRADER TENDER-C, CNMZ30.09 Encounter for oth general coun and advice on contraceptionNew Medication: Pimtrea 0.15-0.02 /0.01 mg (/)J45.990 Exercise induced bronchospasmNew Medication:Proair HFA 108(90 Base) mcg/ActNew Labs:CBC W/Automated DiffVitamin D ,25-HydroxyComprehensive Metabolic PanelTSH Reflex FT4 And/Or OB4Kofapnpm: Report any worsening of gqwckacwJ82.9 Anxiety disorder, unspecifiedComments: Patient states she is not depressed or anxious and feels she does not need Zoloft at this timeR87.612 Low grade intrepith lesion cyto smr crvx (LGSIL) Comments:Patient had colposcopy at [facility], Dr Bowles. Patient counseled and I asked her to sign release for findings.R41.840 Attention and concentration deficitComments:Patient to monitor symptoms. I will review records from Dr Huynh's office and get back to Patient after reviewing recordsAllFollow up: RTO in 3 months with labs 1 week prior to OV Sign consent for colp from Dr Bowles PCP records from Dr Stanley
[2018-07-30 17:11] VITALS: BP 116/77
--- NOTE | 2018-07-30 17:18 | UC ---
Throat Pain/Nasal Neal HPI - HPI Summary HPI Summary: 28 yo F c/o 2 days of throat pain. No cough. No fever. Today noted white patches on tonsils. Reports having "strep" about twice per year. +odynophagia but no dysphagia. took ibuprofen earlier today w some relief of pain - History of Current Complaint Chief Complaint: UCGeneralIllness Stated Complaint: SORE THROAT Time Seen by Provider: 07/30/18 17:11 Hx Obtained From: Patient Hx Last Menstrual Period: 05/04/18 Onset/Duration: Gradual Onset Pain Intensity: 10 Cough: Nonproductive - Allergies/Home Medications Allergies/Adverse Reactions: Allergies Allergy/AdvReac Type Severity Reaction Status Date / Time No Known Allergies Allergy Verified 05/11/18 13:41 PMH/Surg Hx/FS Hx/Imm Hx Previously Healthy: Yes - Surgical History Surgical History: Yes Surgery Procedure, Year, and Place: bx left breast - Family History Known Family History: Positive: Cardiac Disease Negative: Hypertension - Social History Alcohol Use: Occasionally Alcohol Amount: 5 Substance Use Type: None Smoking Status (MU): Never Smoked Tobacco - Immunization History Most Recent Influenza Vaccination: Not the Season Review of Systems Constitutional: Negative Skin: Negative Respiratory: Negative Cardiovascular: Negative Gastrointestinal: Negative Neurological: Negative Is Patient Immunocompromised?: No All Other Systems Reviewed And Are Negative: Yes Physical Exam Triage Information Reviewed: Yes Appearance: Well-Appearing, No Pain Distress, Well-Nourished Vital Signs: Initial Vital Signs Temp 98.1 F 07/30/18 17:06 Pulse 78 07/30/18 17:06 Resp 14 07/30/18 17:06 BP 116/77 07/30/18 17:06 Pulse Ox 100 07/30/18 17:06 Vital Signs Reviewed: Yes Eyes: Positive: Conjunctiva Clear ENT: Positive: Pharyngeal erythema, Tonsillar swelling, Tonsillar exudate. Negative: Trismus, Muffled voice, Hoarse voice Neck: Positive: Supple, Tenderness @, Enlarged Nodes @ - L cervical adenopathy Respiratory: Positive: No respiratory distress, No accessory muscle use Abdomen Description: Negative: Distended Neurological: Positive: Alert, Muscle Tone Normal Psychological: Positive: Age Appropriate Behavior Skin Exam: Normal Throat Pain/Nasal Course/Dx - Differential Dx/Diagnosis Differential Diagnosis/HQI/PQRI: Pharyngitis, Tonsillitis, URI Provider Diagnoses: Strep pharyngitis Discharge - Sign-Out/Discharge Documenting (check all that apply): Patient Departure All imaging exams completed and their final reports reviewed: No Studies - Discharge Plan Condition: Stable Disposition: HOME Prescriptions: Penicillin VK 500 MG TAB(NF) [Penicillin VK 500 mg Tab] 500 mg PO BID 7 Days # 14 tab Patient Education Materials: Strep Throat (ED) Referrals: Mayra Villavicencio MD [Primary Care Provider] - Yg Morris MD [Medical Doctor] - Additional Instructions: Schedule an appointment with an ENT doctor to discuss your recurrent Strep throat infections. He/she recommend having your tonsils removed to prevent further infection. - Billing Disposition and Condition Condition: STABLE Disposition: Home
== END 2018-07-30 17:37 | disposition home or self-care (01) ==
LOC: UCCORT 16:55
DX: J02.0 Streptococcal pharyngitis (principal)
CPT/HCPCS: 87651; 99212; G0463

== ENCOUNTER 2018-11-07 15:30 | Emergency (ER) | payer OTHER ==
--- OUTSIDE RECORDS SUMMARY | 2018-11-07 15:39 | XMS REPORT | Continuity of Care Document ---
:1990 External Reference #:[id number] Author Name Mayra Villavicencio MD Address [address] [place] [address] Care Team Providers Name Role Phone Mayra Villavicencio MD Care Team Information Chief Service Dispatcher Unavailable Mayra Villavicencio MD Primary Care Physician Unavailable Payers Type Date Identification Numbers Payment Provider Subscriber Policy Number: [id number] [employer] Martha Felton PayID: [id number] [address] [place] [address] Effective: 2012 Policy Number: [id number] Deniaus Davian Tariqjeimy Expires: 2017 PayID: [id number] [address] [address] [place] [address] Advance Directives Description No Information Available Problems Date Description Provider Status Onset: 03/11/2013 [...] sub-group Mayra Villavicencio MD Active Onset: 01/07/2018 Otalgia Mayra Villavicencio MD Active Family History Date Family Member(s) Problem(s) Comments Father Hypercholesterolemia Father 56 Father Hypertension Father High Cholesterol Mother Hypertropic Cardiomyopathy Mother 55 Mother Thyroid Disease Siblings 2 29; 35 Social History Type Date Description Comments Sex Unknown Lives With Mother And Father Diet Patient follows no dietary restrictions Occupation Currently Working Tobacco Use Start: Unknown Never Smoked Cigarettes ETOH Use Occasionally consumes alcohol Tobacco Use Start: Unknown End: Unknown Patient is a former smoker Uses vape. Smoking Status Reviewed: 10/21/18 Patient is a former smoker Uses vape. Allergies, Adverse Reactions, Alerts Description No Known Drug Allergies Medications Medication Date Status Form Strength Qnty SIG Indications Ordering Provider Benzonatate 10/21 Active Capsules 200mg 30cap take one R05 Gagen, s capsule Lida every 8 e, MS, hours as DIRECTOR HEART-C, needed CNM Fluticasone 10/21 Active Suspension 50mcg/Act 32gm 2 sprays J06.9 Gag , intranasal Lida every day e, MS, DIRECTOR HEART-C, CNM Mucinex 10/21 Active Tablets ER 600mg 30tab take 1 J06.9 Gag 12HR s every 12 Lida hours as e, MS, needed for DIRECTOR HEART-C, congestion CNM with a full glass of water Fluconazole 10/14 Active Tablets 100mg 2tabs Take one B37.3 Gagen and in 4 Lida days repeat e, MS, DIRECTOR HEART-C, CNM Pimtrea 10/14 Active Tablets 0.15-0.02 28tab take one Z30.09 Gagen /0.01 mg s every day Lida (17/02) at the same e, MS, time DIRECTOR HEART-C, CNM Proair HFA 15 Active Aerosol 108(90Bas 8.500 take 1 or 2 J45.990 Gagen e) gm puffs 20 Lida mcg/Act min before e, MS, exercise DIRECTOR HEART-C, CNM Pimtrea /15 Hx Tablets 0.15-0.02 28tab Take one Z30.09 Gagen /0.01 mg s every day Lida - (17/02) at the same e, MS, 10/21 time DIRECTOR HEART-C, CNM Lo Loestrin Fe 05/28 Hx Tablets 1mg-10 28tab Take one Z30.09 Gagen, mcg / 10 s tablet Lida - mcg every day e, MS, 10/14 at the same DIRECTOR HEART-C time CNM Ciprodex 01/07 Hx Suspension 0.3-0.1% 1bott 4 drops in Saud, le affected MD Mayra - left ear 05/28 twice a day x 10 days Nitrofurantoin 11/25 Hx Capsules 100mg 10cap 1 tab by Saud, Monohyd Macro s mouth twice MD Mayra - a day x 5 Sertraline HCL 11/25 Hx Tablets 25mg 30tab take one Saud, s tablet by MD Mayra - mouth every Lexapro 11/04 Hx Tablets 10mg 30tab 1 by mouth R00.0 Simeon, s every day Annmariemitali Vazquez 11/25 , MSN, DIRECTOR HEART F41.9 Lo Loestrin Fe Hx Tablets 1mg-10 mcg / 1 po qd as Unknown 10 mcg directed Xanax - Hx Tablets 0.25mg 1 tab by mouth Unknown 11/25/2017 three times daily as needed for severe anxiety Pimtrea - Hx Tablets 0.15-0.02/0.01 Unknown 05/28/2018 mg (17/02) Immunizations Description No Information Available Vital Signs Date Vital Result Comment 10/21/2018 8:35am BP Systolic Sitting Left Arm 126 mmHg BP Diastolic Sitting Left Arm 77 mmHg Body Temperature 98.2 F Heart Rate 68 /min Last Menstrual Period 8005383 O2 % BldC Oximetry 100 % 10/14/2018 10:03am BP Systolic Sitting Right Arm 102 mmHg BP Diastolic Sitting Right Arm 60 mmHg Body Temperature 98.8 F Heart Rate 60 /min Respiratory Rate 18 /min Height 64.5 inches 5'4.50" Weight 126.00 lb BMI (Body Mass Index) 21.3 kg/m2 BSA (Body Surface Area) 1.62 m2 [place] body weight in kilograms 56 kg O2 % BldC Oximetry 98 % ra 07/14/2018 10:33am BP Systolic Sitting Right Arm 120 mmHg BP Diastolic Sitting Right Arm 80 mmHg Heart Rate 65 /min reg Respiratory Rate 18 /min Height 64.5 inches 5'4.50" Weight 126.00 lb BMI (Body Mass Index) 21.3 kg/m2 BSA (Body Surface Area) 1.62 m2 [place] body weight in kilograms 56 kg O2 % BldC Oximetry 100 % ra 05/28/2018 8:44am BP Systolic Sitting Left Arm 104 mmHg BP Diastolic Sitting Left Arm 64 mmHg Body Temperature 98.6 F Heart Rate 66 /min Respiratory Rate 16 /min Height 64.5 inches 5'4.50" Weight 122.00 lb BMI (Body Mass Index) 20.6 kg/m2 BSA (Body Surface Area) 1.59 m2 [place] body weight in kilograms 56 kg Last Menstrual Period 8479589 O2 % BldC Oximetry 99 % Ra 01/07/2018 9:47am BP Systolic 124 mmHg BP Diastolic 75 mmHg Body Temperature 98.7 F Heart Rate 90 /min Respiratory Rate 14 /min Height 64.5 inches 5'4.50" Weight 122.50 lb BMI (Body Mass Index) 20.7 kg/m2 BSA (Body Surface Area) 1.60 m2 [place] body weight in kilograms 56 kg O2 % BldC Oximetry 100 % 11/25/2017 2:30pm BP Systolic Sitting Right Arm 117 mmHg BP Diastolic Sitting Right Arm 79 mmHg Heart Rate 65 /min Height 64.5 inches 5'4.50" Weight 120.00 lb BMI (Body Mass Index) 20.3 kg/m2 BSA (Body Surface Area) 1.58 m2 [place] body weight in kilograms 56 kg O2 % BldC Oximetry 99 % ra 11/04/2017 2:47pm BP Systolic Sitting Left Arm 92 mmHg BP Diastolic Sitting Left Arm 64 mmHg Heart Rate 63 /min Respiratory Rate 16 /min Height 63.25 inches 5'3.25" Weight 121.00 lb BMI (Body Mass Index) 21.3 kg/m2 BSA (Body Surface Area) 1.57 m2 [place] body weight in kilograms 53 kg 03/11/2013 9:53am BP Systolic Sitting Right Arm 108 mmHg BP Diastolic Sitting Right Arm 64 mmHg Heart Rate 57 /min Respiratory Rate 14 /min Height 63.25 inches 5'3.25" Weight 121.00 lb BMI (Body Mass Index) 21.3 kg/m2 BSA (Body Surface Area) 1.57 m2 Results Test Date Facility Test Result H/L Range Note Chlmaydia/GC/ 10/21/2018 [facility] Chlamydia NEGATIVE Negative [address] trachomatis, [place] [address] [phone] Neisseria gonorrhoeae, PCR NEGATIVE Negative 2 Trichomonas vaginalis PCR NEGATIVE Negative Specimen Type: Genital Affirm 10/21/2018 [facility] Trichomonas Negative [Negative] Vaginitis [address] [place] [place] [address] [phone] Gardnerella vaginalis Negative [Negative] Thao species Negative [Negative] 3 CBC W/Automated Diff 10/13/2018 [facility] White Blood 9.6 K/uL N 3.1-10.[address] [place] [address] [phone] Red Blood Count 4.90 M/uL N 3.90-5.40 Hemoglobin 14.9 gm/dL N 11.6-15.8 Hematocrit 43.6 % N 36.0-46.1 Mean Cell Volume 89.0 fl N 80.9-99.0 Mean Corpuscular HGB 30.4 pg N 25.9-32.7 Mean Corpuscular HGB Conc 34.2 g/dL N 30.8-34.3 Platelet Count 247 K/uL N 155-360 Red Cell Distri Width SD 42.8 fl N 36-47 Red Cell Distri Width %CV 13.5 % N 11.7-14.4 Mean Platelet Volume 11.3 fL N 8.9-12.4 Neut% 63.4 % N 40.4-72.8 Lymph % 28.5 % N 20.0-42.0 [place] % 5.8 % N 4.3-13.2 Eo% 1.9 % N 0.0-6.6 Bas% 0.4 % N 0.0-1.1 Neut# 6.06 K/uL N 1.8-7.0 Lymph # 2.72 K/uL N 1.0-4.0 [place] # 0.55 K/uL N 0.3-0.9 Eos # 0.18 K/uL N 0.0-0.5 Baso # 0.04 K/uL N 0.0-0.1 Laboratory test 10/13/2018 [facility] Vitamin 24.4 Low 30.0-100.0 [address] D,25-Hydroxy ng/mL [place], [place] [id number] [phone] Comprehensive 10/13/2018 [facility] Glucose 65 mg/dL Low 74-106 Metabolic Panel [address] [place], [place] [id number] [phone] BUN 17 mg/dL N 7-18 Creatinine 1.1 mg/dL 0.6-1.3 Glom Filtration Rate, Estimate >60 mL/min >60 If >60 mL/min >60 6 BUN/Creat 15.4 ratio Sodium 139 mmol/L N 136-145 Potassium 4.0 mmol/L N 3.5-5.1 Chloride 106 mmol/L N 98-107 Carbon Dioxide 27 mmol/L N 21-32 Anion Gap 6 mEq/L Low 8-16 Calcium 9.2 mg/dL N 8.5-10.1 Total Protein 8.0 g/dL N 6.4-8.2 Albumin 4.1 g/dL N 3.4-5.0 Globulin 3.9 g/dL N 1.9-4.3 Alb/Glob 1.1 ratio Bilirubin,Total 0.7 mg/dL N 0.2-1.0 Sgot/Ast 21 U/L N 15-37 SGPT/Alt 25 U/L N 12-78 Alkaline Phosphatase 53 U/L N 45-117 Reflex add FT3? Y Reflex add FT4? Y TSH Reflex FT4 10/13/2018 [facility] Thyroid Stim 1.31 uIU/mL N 0.30-4.20 And/Or FT3 [address] Hormone [place], [place] [id number] [phone] Reflex add FT3? Y Reflex add FT4? Y Laboratory 07/30/2018 [facility] Rapid Strep POSITIVE Abnormal Negative 7 test finding [phone] Molecular HPV High Risk 05/28/2018 [facility] HPV High Risk Results on 8, - Alt Ref Lab [address] file [address] [place], [place] [address] [phone] Chlmaydia/GC/ 05/28/2018 [facility] Trichomonas Negative Negative Trichomonas [address] vaginalis PCR PCR [place], [place] [address] [phone] Chlamydia trachomatis, PCR Negative Negative Neisseria gonorrhoeae, PCR Negative Negative 10 Specimen Type: Genital Genital Culture W/ 05/28/2018 [facility] Gram Stain GRAM STAIN INDIC [address] <SEE NOTE> [place], [place] [id number] [phone] Gram Stain FEW GR POS. BACI <SEE NOTE> 12 Gram Stain NO WHITE BLOOD C <SEE NOTE> 13 Genital Culture GENITAL VA Ua RFX Micro & Culture 11/25/2017 [facility] Urine Color YELLOW Yellow [address] [place], [place] [address] [phone] Urine Clarity CLEAR Clear Urine Glucose - Dipstick NEGATIVE mg/dL Negative Urine Bilirubin - Dipstick NEGATIVE Negative Urine Ketone NEGATIVE mg/dL Negative Urine Specific [place]away 1.025 N 1.010-1.030 Urine Blood TRACE Negative Urine PH 6.0 Low 6.5-7.5 Urine Protein - Dipstick NEGATIVE mg/dL Negative Urine Urobilinogen - Dipstick 0.2 E.U./dL N 0.2-1.0 Urine Nitrite - Dipstick POSITIVE Abnormal Negative Urine Leuk Esterase TRACE Abnormal Negative Urine RBC 0-2 rbc/hpf 0-2 Urine WBC 10-20 wbc/hpf High 0-7 Urine Epithelial Cells FEW /lpf None Seen Urine Bacteria MODERATE Abnormal None Seen Urine Amorph Sediment MODERATE Negative Source: URINE, CLEAN CAT <SEE NOTE> 15 Urine Culture 11/25/2017 [facility] Urine ESCHERICHIA COLI Abnormal [address] Culture [place], [place] [address] [phone] Quantity > 100,000 CFU/mL 17 Chlamydia/GC 11/25/2017 [facility] Chlamydia Negative Negative Annemarie, Urine [address] Trachomatis,[place] [address] -PCR [phone] Neisseria Gonorrhoeae,Ur -PCR Negative Negative 18 Culture If 11/25/2017 [facility] Culture If CULTURE TO 19 Indicated Comment [address] Indicated Comment FOLLO <[place] [address] NOTE> [phone] Source: URINE, CLEAN CAT <SEE NOTE> 20 Ast-GN67 11/25/2017 [facility] Nitrofurantoin <=16 S [address] [place] [address] [phone] Trimethoprim/Sulfamethoxazole >=320 R Ampicillin >=32 R Cefazolin <=4 S Ampicillin/Sulbactam 16 I Ciprofloxacin <=0.25 S Piperacillin/Tazobactam <=4 S Ceftazidime <=1 S Ceftriaxone <=1 S Cefepime <=1 S Levofloxacin <=0.12 S Imipenem <=0.25 S Gentamicin >=16 R Tobramycin 8 I Nitrite Ur Ql 10/28/2017 N2N/CCD Import Nitrite Ur Ql Negative Negative Strip.auto Strip.auto Potassium 10/28/2017 N2N/CCD Import Potassium 3.5 3.5-5.1 SerPl-sCnc SerPl-sCnc Prot Ur 10/28/2017 N2N/CCD Import Prot Ur Negative Negative Strip.auto-mCnc Strip.auto-mCnc RDW RBC Auto 10/28/2017 N2N/CCD Import RDW RBC Auto 41.1 3-47 RDW RBC Auto-Rto 10/28/2017 N2N/CCD Import RDW RBC Auto-Rto 12.8 11.7- 14.4 Serum carbon 10/28/2017 N2N/CCD Import Serum carbon 28 21-32 dioxide measurement dioxide measurement Serum or plasma 10/28/2017 N2N/CCD Import Serum or plasma 4.1 3.4-5.0 albumin measurement albumin (mass/volume) measurement (mass/volume) Serum or plasma 10/28/2017 N2N/CCD Import Serum or plasma 61 45-117 alkaline alkaline phosphatase phosphatase measurement ( measurement (enzymatic activity/volume) Serum or plasma 10/28/2017 N2N/CCD Import Serum or plasma 12 Low 15-37 aspartate aspartate aminotransferase aminotransferase measure measurement (enzymatic activity/volume) Serum or plasma 10/28/2017 N2N/CCD Import Serum or plasma 8.8 8.5-10.1 calcium measurement calcium (mass/volume) measurement (mass/volume) Serum or plasma 10/28/2017 N2N/CCD Import Serum or plasma 0.8 0.6-1.3 creatinine creatinine measurement measurement (mass/volum (mass/volume) Serum or plasma 10/28/2017 N2N/CCD Import Serum or plasma 81 74-106 glucose measurement glucose (mass/volume) measurement (mass/volume) Serum or plasma 10/28/2017 N2N/CCD Import Serum or plasma 7.8 6.4-8.2 protein measurement protein (mass/volume) measurement (mass/volume) Serum or plasma 10/28/2017 N2N/CCD Import Serum or plasma 0.3 0.2-1.0 total bilirubin total bilirubin measurement (mass/ measurement (mass/volume) Serum or plasma 10/28/2017 N2N/CCD Import Serum or plasma 19 High 7-18 urea nitrogen urea nitrogen measurement measurement (mass/vo (mass/volume) Serum sodium 10/28/2017 N2N/CCD Import Serum sodium 141 136-145 measurement measurement Specific gravity of 10/28/2017 N2N/CCD Import Specific gravity 1.020 1.010-1.03 Urine by Automated of Urine by 0 test strip Automated test strip Urine appearance 10/28/2017 N2N/CCD Import Urine appearance SL Cloudy Clear determination determination Urine glucose 10/28/2017 N2N/CCD Import Urine glucose Negative Negative measurement by measurement by automated test automated test strip strip (mass/volume) Urine hemoglobin 10/28/2017 N2N/CCD Import Urine hemoglobin Negative Negative detection by detection by automated test automated test strip strip Urine total 10/28/2017 N2N/CCD Import Urine total Negative Negative bilirubin detection bilirubin by automated test detection by automated test strip Urobilinogen Ur 10/28/2017 N2N/CCD Import Urobilinogen Ur 0.2 0.2-1.0 Strip-aCnc Strip-aCnc WBC # Bld Auto 10/28/2017 N2N/CCD Import WBC # Bld Auto 9.7 3.1-10.7 pH Ur Strip.auto 10/28/2017 N2N/CCD Import pH Ur Strip.auto 6.5 6.5-7.5 CBS W/Automated 10/28/2017 [facility] White Blood Count 9.7 K/uL N 3.1-10.7 21 Diff [address] [place] [address] [phone] Red Blood Count 4.51 M/uL N 3.90-5.40 Hemoglobin 14.0 gm/dL N 11.6-15.8 Hematocrit 40.5 % N 36.0-46.1 Mean Cell Volume 89.8 fl N 80.9-99.0 Mean Corpuscular HGB 31.0 pg N 25.9-32.7 Mean Corpuscular HGB Conc 34.6 g/dL High 30.8-34.3 Platelet Count 228 K/uL N 155-360 Red Cell Distri Width SD 41.1 fl N 3-47 Red Cell Distri Width %CV 12.8 % N 11.7-14.4 Mean Platelet Volume 11.2 fL N 8.9-12.4 Neut% 51.8 % N 40.4-72.8 Lymph % 40.7 % N 20.0-42.0 [place] % 5.8 % N 4.3-13.2 Eo% 1.3 % N 0.0-6.6 Bas% 0.4 % N 0.0-1.1 Neut# 5.03 K/uL N 1.8-7.0 Lymph # 3.96 K/uL N 1.0-4.0 [place] # 0.56 K/uL N 0.3-0.9 Eos # 0.13 K/uL N 0.0-0.5 Baso # 0.04 K/uL N 0.0-0.1 Ua RFX Micro & Culture 10/28/2017 [facility] Urine Color YELLOW Yellow II [address] [place] [address] [phone] Urine Clarity SL CLOUDY Clear Urine Glucose - Dipstick NEGATIVE mg/dL Negative Urine Bilirubin - Dipstick NEGATIVE Negative Urine Ketone TRACE mg/dL High Negative Urine Specific [place] 1.020 N 1.010-1.030 Urine Blood NEGATIVE Negative Urine PH 6.5 N 6.5-7.5 Urine Protein - Dipstick NEGATIVE mg/dL Negative Urine Urobilinogen - Dipstick 0.2 E.U./dL N 0.2-1.0 Urine Nitrite - Dipstick NEGATIVE Negative Urine Leuk Esterase NEGATIVE Negative Source: URINE, CLEAN CAT <SEE NOTE> 22 Comprehensive Metabolic 10/28/2017 [facility] Glucose 81 mg/dL N 74-106 Panel [address] [place] [address] [phone] BUN 19 mg/dL High 7-18 Creatinine 0.8 mg/dL N 0.6-1.3 Glom Filtration Rate, Estimate >60 mL/min >60 If >60 mL/min >60 23 BUN/Creat 23.7 ratio Sodium 141 mmol/L N 136-145 Potassium 3.5 mmol/L N 3.5-5.1 Chloride 107 mmol/L N 98-107 Carbon Dioxide 28 mmol/L N 21-32 Anion Gap 6 mEq/L Low 8-16 Calcium 8.8 mg/dL N 8.5-10.1 Total Protein 7.8 g/dL N 6.4-8.2 Albumin 4.1 g/dL N 3.4-5.0 Globulin 3.7 g/dL N 1.9-4.3 Alb/Glob 1.1 ratio Bilirubin,Total 0.3 mg/dL N 0.2-1.0 Sgot/Ast 12 U/L Low 15-37 24 SGPT/Alt 25 U/L N 12-78 Alkaline Phosphatase 61 U/L N 45-117 Laboratory test finding 10/28/2017 [facility] CK 66 U/L N 26-192 [address] [place] [address] [phone] Troponin-I < 0.015 ng/mL 25 D-Dimer, Quantitative < 0.27 ug/mL 26 Magnesium 2.3 mg/dL N 1.8-2.4 Thyroid Stim Hormone 1.02 uIU/mL N 0.30-4.20 Free T4 1.12 ng/dL N 0.76-1.46 Alt SerPl-cCnc 10/28/2017 N2N/CCD Import Alt SerPl-cCnc 25 12-78 Albumin/Glob 10/28/2017 N2N/CCD Import Albumin/Glob SerPl 1.1 SerPl Anion Gap 10/28/2017 N2N/CCD Import Anion Gap 6 Low 8-16 SerPl-sCnc SerPl-sCnc Automated blood 10/28/2017 N2N/CCD Import Automated blood 0.04 0.0-0.1 basophil count basophil count (count/volume) (count/volume) Automated blood 10/28/2017 N2N/CCD Import Automated blood 0.13 0.0-0.5 eosinophil count eosinophil count Automated blood 10/28/2017 N2N/CCD Import Automated blood 40.5 36.0- 46.1 hematocrit hematocrit (volume (volume fraction) fraction) Automated blood 10/28/2017 N2N/CCD Import Automated blood 3.96 1.0-4.0 lymphocyte count lymphocyte count (number/volume) (number/volume) Automated blood 10/28/2017 N2N/CCD Import Automated blood 228 155-360 platelet count platelet count Automated blood 10/28/2017 N2N/CCD Import Automated blood 11.2 8.9-12.4 platelet mean platelet mean volume volume measurement measurement Automated 10/28/2017 N2N/CCD Import Automated 31.0 25.9-32.7 erythrocyte mean erythrocyte mean corpuscular corpuscular hemoglobin hemoglobin (mass per erythrocyte) Automated 10/28/2017 N2N/CCD Import Automated 34.6 High 30.8-34.3 erythrocyte mean erythrocyte mean corpuscular corpuscular hemoglobin hemoglobin concentration measurement (mass/volume) Neutrophils/leuk 10/28/2017 N2N/CCD Import Neutrophils/leuk 51.8 40.4- 72.8 NFr Bld Auto NFr Bld Auto Neutrophils # Bld 10/28/2017 N2N/CCD Import Neutrophils # Bld 5.03 1.8- 7.0 Auto Auto Monocytes/leuk 10/28/2017 N2N/CCD Import Monocytes/leuk NFr 5.8 4.3- 13.2 NFr Bld Auto Bld Auto Lymphocytes/leuk 10/28/2017 N2N/CCD Import Lymphocytes/leuk 40.7 20.0- 42.0 NFr Bld Auto NFr Bld Auto Leukocyte 10/28/2017 N2N/CCD Import Leukocyte esterase Negative Negative esterase Ur Ql Ur Ql Strip.auto Strip.auto Ketones Ur 10/28/2017 N2N/CCD Import Ketones Ur Trace High Negative Strip.auto-mCnc Strip.auto-mCnc Globulin Ser 10/28/2017 N2N/CCD Import Globulin Ser 3.7 1.9-4.3 Calc-mCnc Calc-mCnc Eosinophil/leuk 10/28/2017 N2N/CCD Import Eosinophil/leuk 1.3 0.0-6.6 NFr Bld Auto NFr Bld Auto Color Ur 10/28/2017 N2N/CCD Import Color Ur Yellow Yellow Chloride 10/28/2017 N2N/CCD Import Chloride 107 98-107 SerPl-sCnc SerPl-sCnc Blood monocytes 10/28/2017 N2N/CCD Import Blood monocytes 0.56 0.3-0.9 automated count automated count (number/volume) (number/volume) Blood hemoglobin 10/28/2017 N2N/CCD Import Blood hemoglobin 14.0 11.6- 15.8 measurement measurement (mass/volume) (mass/volume) Blood 10/28/2017 N2N/CCD Import Blood erythrocytes 4.51 3.90-5.40 erythrocytes automated count automated count (number/volume) (number/volume) Basophils/leuk 10/28/2017 N2N/CCD Import Basophils/leuk NFr 0.4 0.0-1.1 NFr Bld Auto Bld Auto BUN/Creat SerPl 10/28/2017 N2N/CCD Import BUN/Creat SerPl 23.7 Automated 10/28/2017 N2N/CCD Import Automated 89.8 80.9-99.0 erythrocyte mean erythrocyte mean corpuscular corpuscular volume volume 1 A64 J02.9 2 A negative result for either C. trachomatis and/or N. gonorrhoeae does not preclued an infection because results are dependent on adequate specimen collection, absence of inhibitors, and sufficient DNA to be detected. 3 Method: BD Affirm VPIII DNA Probe Assay 4 NO DX J45.990 5 Vitamin D deficiency has been defined by the [place] [employer] and an Endocrine Society practice guideline as a level of serum 25-OH vitamin D less than 20 ng/mL (1,2). The Endocrine Society went on to further define vitamin D insufficiency as a level between 21 and 29 ng/mL (2). 1. IOM ([place] [employer]). 2010. Dietary reference intakes for calcium and D. [place]: The National Academies Press. 2. Antwan MF, Ophelia NC, Aditya LOU, et al. Evaluation, treatment, and prevention of vitamin D deficiency: an Endocrine Society clinical practice guideline. JCEM. 2010; 96(7):1911-30. Performed at: RN - [facility] [address] [id number] [employer] Curer: Yesenia Schuster MD, Phone: [phone] Note: Persistent reduction for 3 months or more in an eGFR <60 mL/min/1.73 m2 defines CKD. Patients with eGFR values >/=60 mL/min/1.73 m2 may also have CKD if evidence of persistent proteinuria is present. The original MDRD equation for estimated GFR is not valid for patients less than 18 years of age. Additional information may be found at www.kdoqi.org. 7 Nursing Home Social Worker: [id number] 8 A64 Z12.4 9 Hard copy of report to be sent by mail Report may be viewed in Clinical Review, or in PCI under Medical Record Forms 10 A negative result for either C. trachomatis and/or N. gonorrhoeae does not preclued an infection because results are dependent on adequate specimen collection, absence of inhibitors, and sufficient DNA to be detected. 11 GRAM STAIN INDICATES NORMAL GENITAL VA 12 FEW GR POS. BACILLI SUGGESTIVE OF LACTOBACILLUS SP. 13 NO WHITE BLOOD CELLS 14 R30.0 15 URINE, CLEAN CATCH 16 ESCHERICHIA COLI 17 > 100,000 CFU/mL 18 A negative result for either C. trachomatis and/or N. gonorrhoeae does not preclued an infection because results are dependent on adequate specimen collection, absence of inhibitors, and sufficient DNA to be detected. 19 CULTURE TO FOLLOW 20 URINE, CLEAN CATCH 21 BAD ARM PAIN BOTH ARMS UPPER BACK 22 URINE, CLEAN CATCH 23 Note: Persistent reduction for 3 months or more in an eGFR <60 mL/min/1.73 m2 defines CKD. Patients with eGFR values >/=60 mL/min/1.73 m2 may also have CKD if evidence of persistent proteinuria is present. The original MDRD equation for estimated GFR is not valid for patients less than 18 years of age. Additional information may be found at www.kdoqi.org. 24 Values below the stated reference ranges of AST and ALT can be seen in normal populations. Clinical correlation is suggested. 25 0.0 - 0.045 ng/mL: Normal 0.046 - 0.5 ng/mL: Suggestive 0.6 - 1.5 ng/mL: Consistent 26 <=0.49 ug/mL - Low likelihood of DIC, DVT or Pulmonary Embolism >0.49 ug/mL - Additional testing should be done to rule out DIC, DVT, or Pulmonary embolism as clinically indicated. ([facility] has established a 97.89% negative predictive value for thrombotic disease when a cutoff value of 0.5 ug/mL is used.) Procedures Date Code Description Status 11/25/2017 00951 Radiology, T-Spine 2 Views Completed 11/19/2017 61434 Echocardiogram Complete Completed 11/04/2017 52281 EKG-Tracing And Report Completed 03/11/2013 56599 EKG-Tracing And Report Completed 03/03/2013 14026 Echocardiogram Complete Completed 02/02/2008 99197 EKG Interpretation And Report Only Completed Encounters Type Date Location Provider Dx Diagnosis Office Visit 07/14/2018 Primary Care Evelyn Parr.09 Encounter for oth 10:30a Office [place] [facility], general coun and DIRECTOR HEART-C, CNM advice on contraception J45.990 Exercise induced bronchospasm F41.9 Anxiety disorder, unspecified R87.612 Low grade intrepith lesion cyto smr crvx (LGSIL) R41.840 Attention and concentration deficit Office Visit 05/28/2018 Primary Care Keshav Z30.09 Encounter for oth 8:30a Office [place] Izabela, general coun and DIRECTOR HEART-C, CNM advice on contraception Z12.4 Encounter for screening for malignant neoplasm of cervix 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 A64 Unspecified sexually transmitted disease Office Visit 01/07/2018 10:00a Primary Care Mayra Villavicencio, Z02.1 Encounter for Office MD pre-employment examination F41.9 Anxiety disorder, unspecified M54.5 Low back pain J30.9 Allergic rhinitis, unspecified H92.02 Otalgia, left ear Office Visit 11/25/2017 2:40p Primary Care Mayra Villavicencio, F41.9 Anxiety disorder, Office MD unspecified R30.0 Dysuria A64 Unspecified sexually transmitted disease M54.5 Low back pain Office Visit 11/04/2017 Cardiology Annmarie Simeon R00.0 Tachycardia, 3:00p Office SUNNY Vazquez, unspecified DIRECTOR HEART F41.9 Anxiety disorder, unspecified Office Visit 03/11/2013 Cardiology Andres Ibarra 427.89 Cardiac 9:50a Office Brendon Trejo, [facility] Dysrhythmia Other Plan of Treatment 10/21/2018 - Izabela Parr, MS, DIRECTOR HEART-C, CNMR05 CoughNew Medication: Benzonatate 200 mg - take one capsule every 8 hours as neededComments:-- Increase fluid intake to make mucous easier to expectorate----May use Guaifenesin (Mucinex) to thin mucous and make it easier to clear from the head, throat, and lungs --Expectorate sputum--May use cough drops--Rest--May use Vicks ' vaporub on chest, under nose for cough --Avoid smoke filled rooms --May use benzonatate to suppress cough at night-- To use netti potJ06.9 Acute upper respiratory infection, unspecifiedNew Medication:Fluticasone Propionate 50 mcg/ Act - 2 sprays intranasal every dayMucinex 600 mg - take 1 every 12 hours as needed for congestion with a full glass of waterComments:--May use analgesia for discomfort: acetaminophen or ibuprofen--Inhale steam from a hot bath or shower to relieve congestion in your nose, head, and chest--May use Vicks' vaporub on chest, under nose for nasal congestion--May use Neti Pot to rinse out nasal passages with warm salt water to flush out irritants and excess mucous --Rest --Increase fluids --May take Zinc 30 mg to help reduce the duration of hqlxqemD05.9 Acute pharyngitis, [id number] Unspecified sexually transmitted diseaseAllFollow up:--RTO as needed or if worsening
--- OUTSIDE RECORDS SUMMARY | 2018-11-07 15:39 | XMS REPORT | Continuity of Care Document ---
:1990 External Reference #:[id number] Author Name Mayra Villavicencio MD Address [address] [place] [address] Care Team Providers Name Role Phone Mayra Villavicencio MD Care Team Information Video Intern Unavailable Mayra Villavicencio MD Primary Care Physician Unavailable Payers Type Date Identification Numbers Payment Provider Subscriber Policy Number: [id number] [employer] Martha Felton PayID: [id number] [address] [place] [address] Effective: 2012 Policy Number: [id number] Deniaus Davian Tariqjeimy Expires: 2017 PayID: [id number] [address] [address] [place] [address] Advance Directives Description No Information Available Problems [...] Lida every 8 e, MS, hours as TILE MOLDER HAND-C, needed CNM Fluticasone 10/21 Active Suspension 50mcg/Act 32gm 2 sprays J06.9 Gag , intranasal Lida every day e, MS, TILE MOLDER HAND-C, CNM Mucinex 10/21 Active Tablets ER 600mg 30tab take 1 J06.9 Gag 12HR s every 12 Lida hours as e, MS, needed for TILE MOLDER HAND-C, congestion CNM with a full glass of water Fluconazole 10/14 Active Tablets 100mg 2tabs Take one B37.3 Gagen and in 4 Lida days repeat e, MS, TILE MOLDER HAND-C, CNM Pimtrea 10/14 Active Tablets 0.15-0.02 28tab take one Z30.09 Gagen /0.01 mg s every day Lida (17/02) at the same e, MS, time TILE MOLDER HAND-C, CNM Proair HFA 15 Active Aerosol 108(90Bas 8.500 take 1 or 2 J45.990 Gagen e) gm puffs 20 Lida mcg/Act min before e, MS, exercise TILE MOLDER HAND-C, CNM Pimtrea /15 Hx Tablets 0.15-0.02 28tab Take one Z30.09 Gagen /0.01 mg s every day Lida - (17/02) at the same e, MS, 10/21 time TILE MOLDER HAND-C, CNM Lo Loestrin Fe 05/28 Hx Tablets 1mg-10 28tab Take one Z30.09 Gagen, mcg / 10 s tablet Lida - mcg every day e, MS, 10/14 at the same TILE MOLDER HAND-C time CNM Ciprodex 01/07 Hx Suspension 0.3-0.1% [...] every day Annmariemitali Vazquez 11/25 , MSN, TILE MOLDER HAND F41.9 Lo Loestrin Fe Hx Tablets 1mg-10 [...] Heart Rate 68 /min Last Menstrual Period 6608979 O2 % BldC Oximetry 100 % 10/14/2018 10:03am BP Systolic Sitting Right Arm 102 mmHg BP Diastolic Sitting Right Arm 60 mmHg Body Temperature 98.8 F Heart Rate 60 /min Respiratory Rate 18 /min Height 64.5 inches 5'4.50" Weight 126.00 lb BMI (Body Mass Index) 21.3 kg/m2 BSA (Body Surface Area) 1.62 m2 [place] body weight in kilograms 56 kg O2 % BldC Oximetry 98 % ra 07/14/2018 10:33am BP Systolic Sitting Right Arm 120 mmHg BP Diastolic Sitting Right Arm 80 mmHg Heart Rate 65 /min reg Respiratory Rate 18 /min Height 64.5 inches 5'4.50" Weight 126.00 lb BMI (Body Mass Index) 21.3 kg/m2 BSA (Body Surface Area) 1.62 m2 [place] body weight in kilograms 56 kg O2 % BldC Oximetry 100 % ra 05/28/2018 8:44am BP Systolic Sitting Left Arm 104 mmHg BP Diastolic Sitting Left Arm 64 mmHg Body Temperature 98.6 F Heart Rate 66 /min Respiratory Rate 16 /min Height 64.5 inches 5'4.50" Weight 122.00 lb BMI (Body Mass Index) 20.6 kg/m2 BSA (Body Surface Area) 1.59 m2 [place] body weight in kilograms 56 kg Last Menstrual Period [id number] O2 % BldC Oximetry 99 % Ra 01/07/2018 9:47am BP Systolic 124 mmHg BP Diastolic 75 mmHg Body Temperature 98.7 F Heart Rate 90 /min Respiratory Rate 14 /min Height 64.5 inches 5'4.50" Weight 122.50 lb BMI (Body Mass Index) 20.7 kg/m2 BSA (Body Surface Area) 1.60 m2 [place] body weight in kilograms 56 kg O2 % BldC Oximetry 100 % 11/25/2017 2:30pm BP Systolic Sitting Right Arm 117 mmHg BP Diastolic Sitting Right Arm 79 mmHg Heart Rate 65 /min Height 64.5 inches 5'4.50" Weight 120.00 lb BMI (Body Mass Index) 20.3 kg/m2 BSA (Body Surface Area) 1.58 m2 [place] body weight in kilograms 56 kg O2 % BldC Oximetry 99 % ra 11/04/2017 2:47pm BP Systolic Sitting Left Arm 92 mmHg BP Diastolic Sitting Left Arm 64 mmHg Heart Rate 63 /min Respiratory Rate 16 /min Height 63.25 inches 5'3.25" Weight 121.00 lb BMI (Body Mass Index) 21.3 kg/m2 BSA (Body Surface Area) 1.57 m2 [place] body weight in kilograms 53 kg 03/11/2013 9:53am BP Systolic Sitting Right Arm 108 mmHg BP Diastolic Sitting Right Arm 64 mmHg Heart Rate 57 /min Respiratory Rate 14 /min Height 63.25 inches 5'3.25" Weight 121.00 lb BMI (Body Mass Index) 21.3 kg/m2 BSA (Body Surface Area) 1.57 m2 Results Test Date Facility Test Result H/L Range Note Chlmaydia/GC/ 10/21/2018 PSYCHIATRIC Chlamydia NEGATIVE Negative [address] trachomatis, PCR PCR [place] [address] [phone] Neisseria gonorrhoeae, PCR NEGATIVE Negative 2 Trichomonas vaginalis PCR NEGATIVE Negative Specimen Type: Genital Affirm 10/21/2018 PSYCHIATRIC Trichomonas Negative [Negative] Vaginitis [address] vaginalis Panel [place] [address] [phone] Gardnerella vaginalis Negative [Negative] Thao species Negative [Negative] 3 Throat Culture 10/21/2018 PSYCHIATRIC Throat Culture NORMAL THROAT [address] Complete [place] <SEE NOTE> [place] [address] [phone] CBC W/Automated 10/13/2018 PSYCHIATRIC White Blood 9.6 K/uL N 3.1-10. [address] Count 7 [place] [address] [phone] Red Blood Count 4.90 M/uL N 3.90-5.40 [...] 40.4-72.8 Lymph % 28.5 % N 20.0-42.0 Brantley % 5.8 % N 4.3-13.2 Eo% 1.9 % N 0.0-6.6 Bas% 0.4 % N 0.0-1.1 Neut# 6.06 K/uL N 1.8-7.0 Lymph # 2.72 K/uL N 1.0-4.0 Brantley # 0.55 K/uL N 0.3-0.9 Eos # 0.18 K/uL N 0.0-0.5 Baso # 0.04 K/uL N 0.0-0.1 Laboratory test 10/13/2018 PSYCHIATRIC Vitamin 24.4 Low 30.0-100.[address] D,25-Hydroxy ng/mL [place], [place] [id number] [phone] Comprehensive 10/13/2018 PSYCHIATRIC Glucose 65 mg/dL Low 74-106 Metabolic Panel [address] [place], [place] [id number] [phone] BUN 17 mg/dL N 7-18 Creatinine 1.1 mg/dL 0.6-1.3 Glom Filtration Rate, Estimate >60 mL/min >60 If >60 mL/min >60 7 BUN/Creat 15.4 ratio Sodium 139 mmol/L N [...] add FT4? Y TSH Reflex FT4 10/13/2018 PSYCHIATRIC Thyroid Stim 1.31 uIU/mL N 0.30-4.20 And/Or FT3 [address] Hormone [place], [place] [address] [phone] Reflex add FT3? Y Reflex add FT4? Y Laboratory 07/30/2018 [facility] Rapid Strep POSITIVE Abnormal Negative 8 test finding [phone] Molecular HPV High Risk 05/28/2018 PSYCHIATRIC HPV High Risk Results on 9, - Alt Ref Lab [address] file 10 [place], [place] [id number] [phone] Chlmaydia/GC/ 05/28/2018 PSYCHIATRIC Trichomonas Negative Negative Trichomonas [address] vaginalis PCR PCR [place], [place] [id number] [phone] Chlamydia trachomatis, PCR Negative Negative Neisseria gonorrhoeae, PCR Negative Negative 11 Specimen Type: Genital Genital Culture W/ 05/28/2018 PSYCHIATRIC Gram Stain GRAM STAIN INDIC [address] <SEE NOTE> [place], [place] [id number] [phone] Gram Stain FEW GR POS. BACI <SEE NOTE> 13 Gram Stain NO WHITE BLOOD C <SEE NOTE> 14 Genital Culture GENITAL VA Ua RFX Micro & Culture 11/25/2017 PSYCHIATRIC Urine Color YELLOW Yellow [address] [place] [address] [phone] Urine Clarity CLEAR Clear Urine Glucose - Dipstick NEGATIVE mg/dL Negative Urine Bilirubin - Dipstick NEGATIVE Negative Urine Ketone NEGATIVE mg/dL Negative Urine Specific Mulino 1.025 N 1.010-1.030 Urine Blood TRACE Negative [...] Negative Source: URINE, CLEAN CAT <SEE NOTE> 16 Urine Culture 11/25/2017 PSYCHIATRIC Urine ESCHERICHIA COLI Abnormal [address] Culture [place], [place] [id number] [phone] Quantity > 100,000 CFU/mL 18 Chlamydia/GC 11/25/2017 PSYCHIATRIC Chlamydia Negative Negative Annemarie, Urine [address] Trachomatis,[place] [address] -PCR [phone] Neisseria Gonorrhoeae,Ur -PCR Negative Negative 19 Culture If 11/25/2017 PSYCHIATRIC Culture If CULTURE TO [address] Indicated Comment [place]LLO <[place] [address] NOTE> [phone] Source: URINE, CLEAN CAT <SEE NOTE> 21 Ast-GN67 11/25/2017 [facility] Nitrofurantoin <=16 S [address] [place] [address] [phone] Trimethoprim/Sulfamethoxazole >=320 R Ampicillin >=32 R Cefazolin [...] White Blood Count 9.7 K/uL N 3.1-10.7 22 Diff [address] [place] [address] [phone] Red Blood Count 4.51 M/uL N 3.90-5.40 [...] 40.4-72.8 Lymph % 40.7 % N 20.0-42.0 Brantley % 5.8 % N 4.3-13.2 Eo% 1.3 % N 0.0-6.6 Bas% 0.4 % N 0.0-1.1 Neut# 5.03 K/uL N 1.8-7.0 Lymph # 3.96 K/uL N 1.0-4.0 Brantley # 0.56 K/uL N 0.3-0.9 Eos # 0.13 K/uL N 0.0-0.5 Baso # 0.04 K/uL N 0.0-0.1 Ua RFX Micro & Culture 10/28/2017 PSYCHIATRIC Urine Color YELLOW Yellow II [address] [place] [address] [phone] Urine Clarity SL CLOUDY Clear Urine Glucose - Dipstick NEGATIVE mg/dL Negative Urine Bilirubin - Dipstick NEGATIVE Negative Urine Ketone TRACE mg/dL High Negative Urine Specific Mulino 1.020 N 1.010-1.030 Urine Blood NEGATIVE Negative Urine PH 6.5 N 6.5-7.5 Urine Protein - Dipstick NEGATIVE mg/dL Negative Urine Urobilinogen - Dipstick 0.2 E.U./dL N 0.2-1.0 Urine Nitrite - Dipstick NEGATIVE Negative Urine Leuk Esterase NEGATIVE Negative Source: URINE, CLEAN CAT <SEE NOTE> 23 Comprehensive Metabolic 10/28/2017 PSYCHIATRIC Glucose 81 mg/dL N 74-106 Panel [address] [place] [address] [phone] BUN 19 mg/dL High 7-18 Creatinine 0.8 mg/dL N 0.6-1.3 Glom Filtration Rate, Estimate >60 mL/min >60 If >60 mL/min >60 24 BUN/Creat 23.7 ratio Sodium 141 mmol/L N [...] N 0.2-1.0 Sgot/Ast 12 U/L Low 15-37 25 SGPT/Alt 25 U/L N 12-78 Alkaline Phosphatase 61 U/L N 45-117 Laboratory test finding 10/28/2017 PSYCHIATRIC CK 66 U/L N 26-192 [address] [place] [address] [phone] Troponin-I < 0.015 ng/mL 26 D-Dimer, Quantitative < 0.27 ug/mL 27 Magnesium 2.3 mg/dL N 1.8-2.4 Thyroid Stim [...] BD Affirm VPIII DNA Probe Assay 4 NORMAL THROAT VA 5 NO DX J45.990 6 Vitamin D deficiency has been defined by the [place] [employer] and an Endocrine Society practice guideline as a level of serum 25-OH vitamin D less than 20 ng/mL (1,2). The Endocrine Society went on to further define vitamin D insufficiency as a level between 21 and 29 ng/mL (2). 1. IOM ([place] [employer]). 2010. Dietary reference intakes for calcium and D. [place]: The National Academies Press. 2. Antwan MF, Ophelia NC, Aditya LOU, et al. Evaluation, treatment, and prevention of vitamin D deficiency: an Endocrine Society clinical practice guideline. JCEM. 2010; 96(7):1911-30. Performed at: RN - [facility] [address], [place], [place] [id number] [place] Worker: Yesenia Schuster MD, Phone: [phone] Note: Persistent reduction for 3 months or more in an eGFR <60 mL/min/1.73 m2 defines CKD. Patients with eGFR values >/=60 mL/min/1.73 m2 may also have CKD if evidence of persistent proteinuria is present. The original MDRD equation for estimated GFR is not valid for patients less than 18 years of age. Additional information may be found at www.kdoqi.org. 8 Distributor Sales Consultant: [id number] 9 A64 Z12.4 10 Hard copy of report to be sent by mail Report may be viewed in Clinical Review, or in PCI under Medical Record Forms 11 A negative result for either C. trachomatis and/or N. gonorrhoeae does not preclued an infection because results are dependent on adequate specimen collection, absence of inhibitors, and sufficient DNA to be detected. 12 GRAM STAIN INDICATES NORMAL GENITAL VA 13 FEW GR POS. BACILLI SUGGESTIVE OF LACTOBACILLUS SP. 14 NO WHITE BLOOD CELLS 15 R30.0 16 URINE, CLEAN CATCH 17 ESCHERICHIA COLI 18 > 100,000 CFU/mL 19 A negative result for either C. trachomatis and/or N. gonorrhoeae does not preclued an infection because results are dependent on adequate specimen collection, absence of inhibitors, and sufficient DNA to be detected. 20 CULTURE TO FOLLOW 21 URINE, CLEAN CATCH 22 BAD ARM PAIN BOTH ARMS UPPER BACK 23 URINE, CLEAN CATCH 24 Note: Persistent reduction for 3 months or more in an eGFR <60 mL/min/1.73 m2 defines CKD. Patients with eGFR values >/=60 mL/min/1.73 m2 may also have CKD if evidence of persistent proteinuria is present. The original MDRD equation for estimated GFR is not valid for patients less than 18 years of age. Additional information may be found at www.kdoqi.org. 25 Values below the stated reference ranges of AST and ALT can be seen in normal populations. Clinical correlation is suggested. 26 0.0 - 0.045 ng/mL: Normal 0.046 - 0.5 ng/mL: Suggestive 0.6 - 1.5 ng/mL: Consistent 27 <=0.49 ug/mL - Low likelihood of DIC, DVT or Pulmonary Embolism >0.49 ug/mL - Additional testing should be done to rule out DIC, DVT, or Pulmonary embolism as clinically indicated. ([facility] has established a 97.89% negative predictive value for thrombotic disease when a cutoff value of 0.5 ug/mL is used.) Procedures Date Code Description Status 11/25/2017 15750 Radiology, T-Spine 2 Views Completed 11/19/2017 22567 Echocardiogram Complete Completed 11/04/2017 03773 EKG-Tracing And Report Completed 03/11/2013 06714 EKG-Tracing And Report Completed 03/03/2013 26300 Echocardiogram Complete Completed 02/02/2008 24883 EKG Interpretation And Report Only Completed Encounters Type Date Location Provider Dx Diagnosis Office Visit 10/21/2018 Primary Care Keshav J06.9 Acute upper 8:30a Office IzabelaMS, respiratory TILE MOLDER HAND-C, CNM infection, unspecified J02.9 Acute pharyngitis, unspecified R05 Cough A64 Unspecified sexually transmitted disease Office Visit 10/14/2018 10:00a Primary Care Izabela Parr, B37.3 Candidiasis of Office MS, TILE MOLDER HAND-C, CNM vulva and vagina F41.9 Anxiety disorder, unspecified R87.612 Low grade intrepith lesion cyto smr crvx (LGSIL) Z30.011 Encounter for initial prescription of contraceptive pills Office Visit 07/14/2018 Primary Care Keshav Z30.09 Encounter for oth 10:30a Office Izabela, , general coun and TILE MOLDER HAND-C, CNM advice on contraception J45.990 Exercise induced bronchospasm F41.9 Anxiety disorder, unspecified R87.612 Low grade intrepith lesion cyto smr crvx (LGSIL) R41.840 Attention and concentration deficit Office Visit 05/28/2018 Primary Care Keshav, Z30.09 Encounter for oth 8:30a Office IzabelaMS, general coun and TILE MOLDER HAND-C, CNM advice on contraception Z12.4 Encounter for screening for malignant neoplasm of cervix Z01.419 Encntr for kiln charger exam (general) (routine) w/o abn findings A64 Unspecified sexually transmitted disease Office Visit 01/07/2018 10:00a Primary Care Mayra Villavicencio, Z02.1 Encounter for Office MD pre-employment examination F41.9 Anxiety disorder, unspecified M54.5 Low back pain J30.9 Allergic rhinitis, unspecified H92.02 Otalgia, left ear Office Visit 11/25/2017 2:40p Primary Care Mayra Villavicencio F41.9 Anxiety disorder, Office MD unspecified R30.0 Dysuria A64 Unspecified sexually transmitted disease M54.5 Low back pain Office Visit 11/04/2017 Cardiology Annmarie Simeon R00.0 Tachycardia, 3:00p Office SUNNY Vazquez, unspecified TILE MOLDER HAND F41.9 Anxiety disorder, unspecified Office Visit 03/11/2013 Cardiology CatelivNiniAndres 427.89 Cardiac 9:50a Adry Trejo M.D., [facility] Dysrhythmia Other Plan of Treatment 10/21/2018 - Izabela Parr, MS, TILE MOLDER HAND-C, CNMJ06.9 Acute upper respiratory infection, unspecifiedNew Medication:Fluticasone Propionate 50 mcg/Act - 2 sprays intranasal every dayMucinex 600 mg - take 1 every 12 hours as needed for congestion with a full glass of waterComments:--May use analgesia for discomfort : acetaminophen or ibuprofen--Inhale steam from a hot bath or shower to relieve congestion in your nose, head, and chest--May use Vicks' vaporub on chest, under nose for nasal congestion--May use Neti Pot to rinse out nasal passages with warm salt water to flush out irritants and excess mucous--Rest --Increase fluids --May take Zinc 30 mg to help reduce the duration of ztsznwuM93.9 Acute pharyngitis, tcqdigimkqkE12 CoughNew Medication:Benzonatate 200 mg - take one capsule every 8 hours as neededComments:--Increase fluid intake to make mucous easier to expectorate----May use Guaifenesin (Mucinex) to thin mucous and make it easier to clear from the head, throat, and lungs --Expectorate sputum--May use cough drops--Rest--May use Vicks' vaporub on chest, under nose for cough -- Avoid smoke filled rooms --May use benzonatate to suppress cough at night-- To use netti potA64 Unspecified sexually transmitted diseaseAllFollow up:--RTO as needed or if worsening
[2018-11-07 16:16] VITALS: BP 126/80
--- NOTE | 2018-11-07 16:58 | ED ---
Throat Pain/Nasal Congestion - HPI Summary HPI Summary: 28 yr old with about 2-3 days of mild sore throat. She has also had runny nose. No coughing. No fever or chills. No drooling. She has had strep throat twice since July but that felt differently than now. - History of Current Complaint Chief Complaint: UCGeneralIllness Time Seen by Provider: 11/07/18 16:37 - Allergies/Home Medications Allergies/Adverse Reactions: Allergies Allergy/AdvReac Type Severity Reaction Status Date / Time No Known Allergies Allergy Verified 11/07/18 16:14 PMH/Surg Hx/FS Hx/Imm Hx Endocrine/Hematology History: Denies: Hx Diabetes Respiratory History: Reports: Hx Asthma - r/t exercise - Surgical History Surgery Procedure, Year, and Place: bx left breast Infectious Disease History: No Infectious Disease History: Reports: Hx Shingles - ~2004 Denies: Traveled Outside the [place] in Last 30 Days - Family History Known Family History: Positive: Cardiac Disease Negative: Hypertension - Social History Alcohol Use: Occasionally Alcohol Amount: 5 Substance Use Type: Reports: None Smoking Status (MU): Never Smoked Tobacco Review of Systems Constitutional: Negative Positive: Sore Throat, Nasal Discharge All Other Systems Reviewed And Are Negative: Yes Physical Exam Triage Information Reviewed: Yes Vital Signs On Initial Exam: Initial Vitals Temp Pulse Resp BP Pulse Ox 98.6 F 58 14 126/80 100 11/07/18 16:13 11/07/18 16:13 11/07/18 16:13 11/07/18 16:13 11/07/18 16:13 Vital Signs Reviewed: Yes Appearance: Positive: Well-Appearing, No Pain Distress Skin: Positive: Warm, Skin Color Reflects Adequate Perfusion Eyes: Positive: EOMI ENT: Positive: Pharyngeal erythema, Nasal congestion, Nasal drainage, TMs normal Neck: Positive: Nontender Respiratory/Lung Sounds: Positive: Clear to Auscultation, Breath Sounds Present Cardiovascular: Positive: RRR. Negative: Murmur Abdomen Description: Negative: Distended Musculoskeletal: Positive: Strength/ROM Intact Neurological: Positive: Sensory/Motor Intact, Alert, Oriented to Person Place, Time, CN Intact II-III Psychiatric: Positive: Normal - Radha Coma Scale Best Eye Response: 4 - Spontaneous Best Motor Response: 6 - Obeys Commands Best Verbal Response: 5 - Oriented Coma Scale Total: 15 Diagnostics - Vital Signs Vital Signs Temp Pulse Resp BP Pulse Ox 11/07/18 16:13 98.6 F 58 14 126/80 100 - Laboratory Lab Results: Lab Results 11/07/18 Range/Units 16:31 Group A Strep Rapid Negative (Negative) Lab Statement: Any lab studies that have been ordered have been reviewed, and results considered in the medical decision making process. EENT Course/Dx - Course Course Of Treatment: 28 yr old with URI. rapid strep neg. - Diagnoses Provider Diagnoses: URI (upper respiratory infection) Discharge - Sign-Out/Discharge Documenting (check all that apply): Patient Departure All imaging exams completed and their final reports reviewed: No Studies - Discharge Plan Condition: Good Disposition: HOME Patient Education Materials: Upper Respiratory Infection (ED) Referrals: Mayra Villavicencio MD [Primary Care Provider] - 3 Days - Billing Disposition and Condition Condition: GOOD Disposition: Home
== END 2018-11-07 17:00 | disposition home or self-care (01) ==
LOC: UCCORT 15:30
DX: J06.9 Acute upper respiratory infection, unspecified (principal)
CPT/HCPCS: 87651; 99211; G0463

== ENCOUNTER 2019-01-11 10:42 | Emergency (ER) | payer SELFPAY ==
[2019-01-11 11:28] VITALS: BP 136/83
--- NOTE | 2019-01-11 13:07 | UC ---
Throat Pain/Nasal Neal HPI - HPI Summary HPI Summary: 28-year-old female presents with complaints of nasal congestion, sinus pressure , sore throat, and occasional nonproductive cough. States this morning she noticed some white spots on her tonsils and was concerned that it may be strep. Denies fever, chills, ear pain, dysphagia, chest pain, shortness of breath, abdominal pain, nausea, vomiting, diarrhea. - History of Current Complaint Chief Complaint: UCRespiratory Stated Complaint: SPOTS ON THROAT Time Seen by Provider: 01/11/19 12:45 Hx Obtained From: Patient Hx Last Menstrual Period: 2 weeks ago Pain Intensity: 2 - Allergies/Home Medications Allergies/Adverse Reactions: Allergies Allergy/AdvReac Type Severity Reaction Status Date / Time No Known Allergies Allergy Verified 01/11/19 11:25 PMH/Surg Hx/FS Hx/Imm Hx Previously Healthy: Yes - Denies significant PMH - Surgical History Surgical History: Yes Surgery Procedure, Year, and Place: bx left breast - Family History Known Family History: Positive: Cardiac Disease Negative: Hypertension - Social History Occupation: Employed Full-time Lives: With Family Alcohol Use: Weekly Alcohol Amount: 5 Substance Use Type: None Smoking Status (MU): Never Smoked Tobacco - Immunization History Most Recent Influenza Vaccination: Not the 2017/2017 Season Review of Systems All Other Systems Reviewed And Are Negative: Yes Constitutional: Negative: Fever, Chills Skin: Negative: Rash Eyes: Negative: Drainage, Eye Redness ENT: Positive: Sore Throat, Nasal Discharge, Sinus Congestion, Sinus Pain/ Tenderness Cardiovascular: Negative: Palpitations, Chest Pain Gastrointestinal: Positive: Negative Genitourinary: Positive: Negative Musculoskeletal: Positive: Negative Neurological: Positive: Negative Physical Exam - Summary Physical Exam Summary: GENERAL APPEARANCE: Well developed, well nourished, alert and cooperative, and appears to be in no acute distress. EYES: Conjunctiva clear. No drainage. EARS: External auditory canals and tympanic membranes clear, hearing grossly intact. NOSE: Mild-moderate nasal congestion. No nasal discharge. THROAT: Pharyngeal erythema. 1+ tonsils with exudate noted no left tonsil. Uvula midline. Oral cavity normal. Teeth and gingiva in good general condition. NECK: Neck supple, non-tender without lymphadenopathy. CARDIAC: Normal S1 and S2. No S3, S4 or murmurs. Rhythm is regular. There is no peripheral edema, cyanosis or pallor. Extremities are warm and well perfused. Capillary refill is less than 2 seconds. Peripheral pulses intact. LUNGS: Clear to auscultation without rales, rhonchi, wheezing or diminished breath sounds. ABDOMEN: Positive bowel sounds. Soft, nondistended, nontender. No guarding or rebound. No masses or hepatosplenomegally. MUSKULOSKELETAL: ROM intact to all extremities. No joint erythema or tenderness. Normal muscular development. Normal gait. SKIN: Skin normal color, texture and turgor with no lesions or eruptions. Triage Information Reviewed: Yes Vital Signs: Initial Vital Signs Temp 98.2 F 01/11/19 11:25 Pulse 82 01/11/19 11:25 Resp 16 01/11/19 11:25 BP 136/83 01/11/19 11:25 Pulse Ox 100 01/11/19 11:25 Vital Signs Reviewed: Yes Throat Pain/Nasal Course/Dx - Course Course Of Treatment: 28-year-old female presents with complaints of nasal congestion, sinus pressure , sore throat, and occasional nonproductive cough. States this morning she noticed some white spots on her tonsils and was concerned that it may be strep. Denies fever, chills, ear pain, dysphagia, chest pain, shortness of breath, abdominal pain, nausea, vomiting, diarrhea. Afebrile. Vital signs stable. Exam was remarkable for some mild to moderate nasal congestion, pharyngeal erythema, and 1+ tonsils with exudate noted on the left tonsil. Rapid strep test was negative. Recommending symptomatic treatment for viral URI versus sinusitis. She is to follow up with her primary care provider in 7 days if symptoms do not improve. Anticipatory guidance and warning symptoms were reviewed with the patient. Verbalizes understanding of this plan of care. - Differential Dx/Diagnosis Differential Diagnosis/HQI/PQRI: Influenza, Pharyngitis, Sinusitis, Tonsillitis , URI Provider Diagnosis: Viral URI Discharge - Sign-Out/Discharge Documenting (check all that apply): Patient Departure All imaging exams completed and their final reports reviewed: No Studies - Discharge Plan Condition: Stable Disposition: HOME Patient Education Materials: Upper Respiratory Infection (ED) Referrals: Mayra Villavicencio MD [Primary Care Provider] - Additional Instructions: The rapid step test performed in the clinic today was negative. Your history and exam are consistent with a viral upper respiratory infection. Viral infections do not respond to antibiotics and are limited to the treatment of symptoms. Viral infections typically run their course in 7-10 days. Drink plenty of fluids to avoid dehydration especially if you are running any fever. Use a saline rinse kit such as Neti Pot or NeilMed at least twice a day to help thin secretions and promote drainage of the sinuses. Use fluticasone (Flonase) nasal spray 2 sprays each nostril once daily. You can try an over the counter decongestant such as Sudafed according to directions as needed for congestion. Take over the counter acetaminophen (Tylenol) or ibuprofen (Advil, Motrin) according to directions as needed for pain or fever. Use salt water gargles several times a day if you have a sore throat. You may also use Chloraseptic spray or Cepacol lonzenges according to directions which contain a numbing medication and can provide some temporary relief from your sore throat. Follow up with your primary care provider in 7 days if symptoms persist. Seek immediate medical attention in the emergency room if you have fever greater than 100.5 F despite taking acetaminophen or ibuprofen, have chest pain , difficulty breathing, are unable to swallow, or have any worsening of symptoms. - Billing Disposition and Condition Condition: STABLE Disposition: Home - Attestation Statements Provider Attestation: Per institutional requirements, I have reviewed the chart, however, I was not consulted specifically or made aware of this patient by the midlevel provider. I did not personally evaluate, interact with , or disposition this patient.
== END 2019-01-11 13:16 | disposition home or self-care (01) ==
LOC: UCCORT 10:42
DX: J06.9 Acute upper respiratory infection, unspecified (principal); J02.9 Acute pharyngitis, unspecified
CPT/HCPCS: 87651; 99211; G0463

== ENCOUNTER 2019-01-13 12:37 | Emergency (ER) | payer SELFPAY ==
[2019-01-13 13:24] VITALS: BP 122/72
--- NOTE | 2019-01-13 13:47 | UC ---
Throat Pain/Nasal Neal HPI - HPI Summary HPI Summary: Patient was seen approximate for 5 days ago for a sore throat and rapid strep test was negative. She continues to have the sore throat and feels miserable. She also has a mild red rash, nonpainful, to her right facial cheek. She is leaving tomorrow for her trip to [place]. - History of Current Complaint Chief Complaint: UCGeneralIllness Stated Complaint: SORE THROAT, RASH Time Seen by Provider: 01/13/19 13:25 Hx Obtained From: Patient Hx Last Menstrual Period: 11/2018 ?: No Onset/Duration: Gradual Onset Severity: Moderate Pain Intensity: 7 Cough: None - Epiglottits Risk Factors Epiglottis Risk Factors: Negative - Allergies/Home Medications Allergies/Adverse Reactions: Allergies Allergy/AdvReac Type Severity Reaction Status Date / Time No Known Allergies Allergy Verified 01/13/19 13:21 Home Medications: Home Medications Fluticasone NASAL SPRAY 50MCG* [Flonase NASAL SPRAY 50MCG*] 2 spray BOTH NARES DAILY 01/13/19 [History Confirmed 01/13/19] Ibuprofen TAB* [Motrin TAB* 800 MG] 800 mg PO Q6H PRN 01/13/19 [History Confirmed 01/13/19] PMH/Surg Hx/FS Hx/Imm Hx - Additional Past Medical History Additional PMH: Patient had been seen at this facility last week and had a negative strep test. Previously Healthy: Yes - Surgical History Surgical History: Yes Surgery Procedure, Year, and Place: bx left breast - Family History Known Family History: Positive: Cardiac Disease Negative: Hypertension - Social History Alcohol Use: Weekly Alcohol Amount: 5 Substance Use Type: None Smoking Status (MU): Never Smoked Tobacco - Immunization History Most Recent Influenza Vaccination: Not the 2016/2017 Season Review of Systems All Other Systems Reviewed And Are Negative: Yes Constitutional: Positive: Fever Skin: Positive: Rash - Mild hive like rash to right facial cheek which started 2 days ago. She states it is not painful nor itchy. Eyes: Positive: Negative ENT: Positive: Sore Throat Is Patient Immunocompromised?: No Physical Exam Triage Information Reviewed: Yes Appearance: Well-Appearing, No Pain Distress, Well-Nourished Vital Signs: Initial Vital Signs Temp 98.5 F 01/13/19 13:18 Pulse 69 01/13/19 13:18 Resp 14 01/13/19 13:18 BP 122/72 01/13/19 13:18 Pulse Ox 100 01/13/19 13:18 Vital Signs Reviewed: Yes Eye Exam: Normal ENT: Positive: Pharyngeal erythema, TMs normal, Tonsillar swelling, Tonsillar exudate, Uvula midline. Negative: Trismus, Muffled voice, Hoarse voice Neck exam: Normal Neck: Positive: Supple, Nontender, Enlarged Nodes @ - Bilateral tonsillar lymph node enlargement. Respiratory Exam: Normal Cardiovascular Exam: Normal Abdominal Exam: Normal Abdomen Description: Negative: Hepatomegaly, Splenomegaly Bowel Sounds: Positive: Present Musculoskeletal Exam: Normal Neurological Exam: Normal Psychological Exam: Normal Skin: Positive: Rashes - Patient has a red hive-like rash to her right facial cheek. It does not appear to be a cellulitis it's nontender, not itchy. Throat Pain/Nasal Course/Dx - Course Course Of Treatment: The rapid strep test was once again negative. The patient is leaving for [place] tomorrow and therefore I am going to treat her with amoxicillin 875 mg by mouth twice a day 10 days. - Differential Dx/Diagnosis Differential Diagnosis/HQI/PQRI: Mononucleosis Provider Diagnosis: Tonsillitis Discharge - Sign-Out/Discharge Documenting (check all that apply): Patient Departure All imaging exams completed and their final reports reviewed: No Studies - Discharge Plan Condition: Fair Disposition: HOME Prescriptions: Amoxicillin PO (*) [Amoxicillin 875 MG (*)] 875 mg PO BID 10 Days #20 tab Patient Education Materials: Tonsillitis (ED) Referrals: Mayra Villavicencio MD [Primary Care Provider] - Additional Instructions: Increase fluids, take the amoxicillin twice a day for 10 days, you may take Benadryl 25-50 mg every 6 hours and see if that improves the facial rash. - Billing Disposition and Condition Condition: FAIR Disposition: Home - Attestation Statements Provider Attestation: I was available for consult. This patient was seen by the [facility]. The patient was not presented to, seen by, or examined by me. -Yisel
== END 2019-01-13 13:52 | disposition home or self-care (01) ==
LOC: UCCORT 12:37
DX: J03.90 Acute tonsillitis, unspecified (principal)
CPT/HCPCS: 87651; 99212; G0463